=== PATIENT | female | born 1995 | race Caucasian/White ===

== ENCOUNTER 2017-07-26 05:50 | Emergency (ER) | payer BC ==
[~2017-07-26] VITALS: Ht 162.6 cm; Wt 82.0 kg
[~2017-07-26 05:50] MED LIST: ADVIN25050 INH; ALBU1AER9 INH; CETI10TA84 PO; IPRASOL4 INH; IUD'IUD; MISCCAP80 PO; MONT1TAB3 PO; SERT-234 PO
[2017-07-26 05:56] VITALS: TEMP 38.1; Ht 162.6 cm; Wt 82.0 kg
[2017-07-26] MEDS ORDERED: ALBUT/IPRATROP 3MG/0.5MG NEB 3 ML VIAL INH STA (06:01)
[2017-07-26] MEDS ORDERED: ACETAMINOPHEN 500 MG TAB PO STA (06:01)
[2017-07-26] MEDS ORDERED: DEXAMETHASONE **PF** INJ 10 MG/ML VIAL PO ONE (06:15)
--- NOTE | 2017-07-26 06:29 | EMERGENCY ROOM VISIT NOTE ---
History First contact with patient: 05:59 Chief Complaint: FLU LIKE SX Stated Complaint: COUGH,CHEST PAIN,WHEEZING,FEVER,ACHES History of Present Illness The patient is a 22 year old female who presents to the Emergency Room with complaints of fever, chills, cough, congestion, myalgias and arthralgias for the past 2 days. Patient has asthma. She's been around sick people. No flu shot. Patient denies chest pain, abdominal pain, sore throat, neck stiffness, vomiting, earache. She is tolerate by mouth fluids and food. Review of Systems See HPI for pertinent positives & negatives. A total of 10 systems reviewed and were otherwise negative. Past Medical/Surgical History Medical Problems: (1) Asthma (2) Croup (3) Panic attack (4) Pneumonia Surgical Problems: (1) [place] teeth removed Family History Diabetes mellitus FH: heart disease Hypertension Social History Smoking Status: Current Some Day Smoker Alcohol Use: none Drug Use: none Marital Status: single Housing Status: lives with roommate Occupation Status: employed Current/Historical Medications Scheduled Cetirizine (Zyrtec), 10 MG PO DAILY Montelukast Sodium (Singulair), 10 MG PO DAILY Prednisone (Prednisone), 50 MG PO DAILY Probiotic Product (Probiotic), 1 CAP PO DAILY Sertraline (Zoloft), 150 MG PO DAILY Scheduled PRN Albuterol (Proair Hfa), 2 PUFFS INH Q4H PRN for Rescue Fluticasone Prop/Salmeterol (Advair Diskus 250-50 Mcg/Dose), 1 PUFF INH DAILY PRN for Ipratropium-Albuterol (Duoneb), 1 TREATMENT INH Q4H PRN for Asthma Miscellaneous Medications Iud's (Paragard Intrauterine [employer]) Physical Exam Vital Signs Date Time Temp Pulse Resp B/P (MAP) Pulse Ox O2 Delivery O2 Flow Rate FiO2 07/26/17 05:56 38.1 122 20 121/77 99 Room Air Physical Exam VITALS: Vitals are noted on the nurse's note and reviewed by myself. Vital signs febrile GENERAL: Pleasant female, in no acute distress, nondiaphoretic, well-developed well-nourished. SKIN: The skin was without rashes, erythema, edema, or bruising. There is no tenting of the skin. Capillary reflex less than 2 seconds. HEAD: Normocephalic atraumatic. EARS: External auditory canals clear, tympanic membranes pearly hernandez without erythema or effusion bilaterally. EYES: Pupils equal round and reactive to light and accommodation. Conjunctivae without injection, sclerae without icterus. Extraocular movements intact. NOSE: Patent, turbinates without inflammation or discharge. No sinus tenderness. MOUTH: Mucous membranes mildly dry Pharynx without erythema or exudate. Uvula midline. Airway patent. Tongue does not deviate. NECK: Supple without nuchal rigidity. No lymphadenopathy. No thyromegaly. Cervical spine is nontender. No JVD. No meningeal signs HEART: Regular rate and rhythm without murmurs gallops or rubs. LUNGS: Mild diffuse end expiratory wheezes, without rales or rhonchi. No dullness to percussion. No retractions or accessory muscle use. ABDOMEN: Positive bowel sounds x 4. Normal tympanic percussion. Soft, nontender, without masses or organomegaly. Singleton sign negative. No guarding or rebound tenderness. MUSCULOSKELETAL: No muscle atrophy, erythema, or edema noted. NEURO: Patient was alert and oriented to person place and time. Normal sensation to light and sharp touch. No focal neurological deficits. Medical Decision & Procedures Laboratory Results Test 07/26/17 06:10 Medications Administered Medications (Trade) Dose Ordered Sig/Vivien Route Start Time Stop Time Status Last Admin Dose Admin Albuterol/ Ipratropium (Duoneb) 3 ml NOW STAT INH 07/26/17 06:01 07/26/17 06:04 DC 07/26/17 06:08 3 ML Acetaminophen (Tylenol Tab) 1,000 mg NOW STAT PO 07/26/17 06:01 07/26/17 06:04 DC 07/26/17 06:08 1,000 MG Dexamethasone Sodium Phosphate (Dexamethasone Inj Pf) 10 mg NOW ONCE PO 07/26/17 06:15 07/26/17 06:16 DC 07/26/17 06:08 10 MG ED Course Prior records/ancillary studies reviewed. Triage Nursing notes reviewed. The patient's history was concerning for fever. Differential diagnosis: Etiologies such as viral syndrome, otitis, pharyngitis, pneumonia, influenza, meningitis, asthmatic bronchitis, sepsis, bacteremia, as well as others were entertained. Physical examination: Patient is alert, interactive and nontoxic-appearing ER treatment provided: Nebulizer, Tylenol, prednisone On reassessment the patient felt better. Diagnostics interpreted by me: Imaging studies: CXR with no acute consolidation, pneumothorax or free air per my interpretation This appears to be consistent with asthmatic bronchitis. Patient had no pneumonia on x-ray. No signs of meningitis. No ear infection. She is advised to take medications as directed, rest, stay well-hydrated and to follow-up family care in a few days or here in the ER sooner for high fevers, lethargy, chest pain, worsening signs or symptoms or as needed. By the evaluation outlined above emergent etiologies such as otitis, pharyngitis, pneumonia, meningitis, urinary tract infection, sepsis, bacteremia, as well as others were deemed relatively unlikely. Patient then stated she needed a refill of her Advair as she was out and this is given to her. The pt informed about the findings as listed above. All questions were answered and pleased with the treatment. Return instructions were outlined and the patient was discharged in stable condition. Outpatient prescription management: Prednisone Referral: The patient was referred back to their primary care physician for follow-up in 2 to 3 days for a recheck of the current condition. Medical Decision as above Medication Reconcilliation Current Medication List: was personally reviewed by me Blood Pressure Screening Patient's blood pressure: Normal blood pressure Impression Primary Impression: Asthmatic bronchitis Departure Information Dispostion Home / Self-Care Condition GOOD Prescriptions Prednisone (Prednisone) 50 Mg Tab 50 MG PO DAILY for 4 Days, #4 TAB Prov: Vale Mays ., KENDAL 07/26/17 Referrals Oliver Dempsey MD (PCP) Patient Instructions My [facility] Additional Instructions Albuterol Inhaler: Take 2 puffs four times daily for five days, then as needed. Prednisone 50mg: Once daily until the prescription is finished. It is best to take this earlier in the day as some patients note occasional difficulty falling asleep when taken in the late evening. Acetaminophen(Tylenol) may be used for fever or pain. Use 1000mg every six hours as needed. Avoid using more than 3000mg in a 24 hour period. (AND/OR) Ibuprofen(Motrin, Advil) may be used for fever or pain. Use 600mg every six hours as needed. Take with food. Avoid using more than 2400mg in a 24 hour period. Do not use 2400mg per day for more than three consecutive days without physician direction. Prolonged inappropriate use can lead to stomach upset or ulcers. Afrin nasal spray: 2-3 sprays to each nostril twice daily as needed for congestion. Do not use for more than 3-4 days because it can lead to worsening rebound congestion. Pseudoephedrine(Sudaphed): 30-60mg every 6 hours as needed for nasal congestion. Do not take this with other stimulant products or supplements. Rest and drink plenty of fluids. Controlling your fever with Tylenol and Ibuprofen as above will make you feel better. Wash your hands after nose blowing, sneezing, or coughing. Most germs are spread through contact, therefore improper hygiene may result in your close contacts and loved ones becoming ill just like you. Continue current medications. Return to the ER for severe headache, neck stiffness, chest pain, difficulty breathing, fevers, vomiting, worsening of your condition, or as needed. Follow up with your primary physician this week for a recheck of your current condition. Problem Qualifiers Primary Impression: Asthmatic bronchitis Asthma severity: mild Asthma persistence: intermittent Asthma complication type: with acute exacerbation Qualified Codes: J45.21 - Mild intermittent asthma with (acute) exacerbation
[2017-07-26] MEDS ORDERED: PRED50TA PO (06:30)
[2017-07-26] MEDS ORDERED: FLUTICASONE/SALMETEROL 250/50 (ADVAIR) 14 PUFF/1 INHALER INH STA (06:31)
[2017-07-26 06:43] VITALS: BP 118/71; PULSE 101; O2SAT 98
--- NOTE | 2017-07-26 06:55 | DIAGNOSTIC IMAGING REPORT ---
CHEST 2 VIEWS ROUTINE CLINICAL HISTORY: Cough. Fever. COMPARISON STUDY: Chest radiograph May 05, 2016. FINDINGS: Lung volumes are normal. No pneumothorax or pleural effusion is present. Pulmonary vascularity is normal. There is no consolidation to suggest pneumonia. Cardiomediastinal silhouette is normal. Appearance of the chest is unchanged. IMPRESSION: No acute cardiopulmonary findings. Electronically signed by: Tutu Nielsen M.D. 07/26/2017 6:54 AM Dictated Date/Time: 07/26/2017 6:53 AM
== END 2017-07-26 06:44 | disposition home or self-care (01) ==
LOC: C.EDB 05:51
DX: J45.21 Mild intermittent asthma with (acute) exacerbation (principal); R05 Cough; R50.9 Fever, unspecified

== ENCOUNTER → 2017-11-04 | Outpatient (CLI) | payer BC ==
[~2017-11-04] MED LIST changes: -ADVIN25050 INH; -ALBU1AER9 INH; -IPRASOL4 INH; -MISCCAP80 PO
[2017-11-04 16:37] LABS: BASO % 0.3 %; BASO ABS # 0.03 K/uL (0-0.2); EOS % 2.1 %; EOS ABS # 0.25 K/uL (0-0.5); HEMATOCRIT 39.9 % (37-47); HEMOGLOBIN 13.7 g/dL (12.0-16.0); LYMPH ABS # 2.39 K/uL (1.2-3.4); MEAN CELL VOLUME 86.9 fL (80-100); MEAN CORPUSCULAR HEMOGLOBIN 29.8 pg (25-34); MEAN CORPUSCULAR HGB CONC 34.3 g/dl (32-36); MEAN PLATELET VOLUME 8.5 fL (7.4-10.4); MONO ABS # 0.84 K/uL (0.11-0.59); NEUT % 69.8 %; NEUT ABS # 8.36 K/uL (1.4-6.5); PLATELET COUNT 397 K/uL (130-400); RED CELL DISTRIBUTION WIDTH CV 12.5 % (11.5-14.5); RED CELL DISTRIBUTION WIDTH SD 40.2 fL (36.4-46.3); WHITE BLOOD COUNT 11.97 K/uL (4.8-10.8)
[2017-11-04 17:25] LABS: T3 FREE 2.91 pg/ml (2.30-4.20)
== END | disposition home or self-care (01) ==
LOC: C.LAB 15:39
PROVIDERS: ATTEND Psychiatry & Neurology Psychiatry
DX: F31.81 Bipolar II disorder (principal)

== ENCOUNTER → 2017-11-11 | Outpatient (CLI) | payer BC ==
[2017-11-11 17:46] LABS: BASO % 0.2 %; BASO ABS # 0.03 K/uL (0-0.2); EOS % 4.1 %; EOS ABS # 0.51 K/uL (0-0.5); HEMATOCRIT 40.9 % (37-47); HEMOGLOBIN 13.7 g/dL (12.0-16.0); IG# 0.06 K/uL (0.00-0.02); LYMPH % 21.7 %; LYMPH ABS # 2.69 K/uL (1.2-3.4); MEAN CELL VOLUME 88.3 fL (80-100); MEAN CORPUSCULAR HEMOGLOBIN 29.6 pg (25-34); MEAN CORPUSCULAR HGB CONC 33.5 g/dl (32-36); MONO % 6.9 %; MONO ABS # 0.86 K/uL (0.11-0.59); NEUT % 66.6 %; NEUT ABS # 8.24 K/uL (1.4-6.5); PLATELET COUNT 388 K/uL (130-400); RED CELL DISTRIBUTION WIDTH CV 12.5 % (11.5-14.5); RED CELL DISTRIBUTION WIDTH SD 40.1 fL (36.4-46.3); WHITE BLOOD COUNT 12.39 K/uL (4.8-10.8)
[2017-11-11 18:19] LABS: ALKALINE PHOSPHATASE 63 U/L (45-117); ALT/SGPT 20 U/L (12-78); AST/SGOT 12 U/L (15-37); TOTAL PROTEIN 7.7 gm/dl (6.4-8.2)
== END | disposition home or self-care (01) ==
LOC: C.LAB 16:47
PROVIDERS: ATTEND Family Medicine
DX: R23.2 Flushing (principal); F31.30 Bipolar disorder, current episode depressed, mild or moderate severity, unspecified

== ENCOUNTER → 2018-03-03 | Outpatient (CLI) | payer BC ==
[~2018-03-03] MED LIST changes: +ABL/5 PO; +EPP3/2 IM; -IUD'IUD; +LEVO1IUD2 IU; +NAPR-22 PO; +PRVHFAIN INH; -SERT-234 PO; +SERT50TA PO; +ZIPR60CA PO
--- NOTE | 2018-03-03 08:51 | DIAGNOSTIC IMAGING REPORT ---
BRAIN WITHOUT CONTRAST HISTORY: Headache. Mental status change. ATYPICAL MIGRAINE TECHNIQUE: Multiplanar multisequence MRI of the brain was performed without the use of contrast. COMPARISON STUDY: None. FINDINGS: There are no areas of restricted diffusion to suggest acute infarction. The midline structures are intact. The paranasal sinuses are clear. The mastoid air cells are clear. The ventricles and sulci are within normal limits for age. There is no mass, hematoma, midline shift. The major vascular flow-voids at the skull base are well maintained. IMPRESSION: No acute intracranial abnormality. The above report was generated using voice recognition software. It may contain grammatical, syntax or spelling errors. Electronically signed by: Saji Mclaughlin M.D. 03/03/2018 8:50 AM Dictated Date/Time: 03/03/2018 8:47 AM
== END | disposition home or self-care (01) ==
LOC: C.MRI 07:50
PROVIDERS: ATTEND Family Medicine
DX: G43.009 Migraine without aura, not intractable, without status migrainosus (principal)

== ENCOUNTER 2025-06-11 16:42 | Observation (INO) ==
--- NOTE | 2025-06-11 17:54 | XRay Report ---
Chest radiograph, one view History: Shortness of breath Comparison: None Findings: Single AP view of the chest performed. No focal consolidation or pleural effusion. No pneumothorax. The cardiomediastinal silhouette is within normal limits. Normal pulmonary vascularity. No evidence for lymphadenopathy. No visualized bony or soft tissue abnormality. Impression: Normal chest radiograph Electronically signed by Oliver Dietrich 06-11-2025 5:54 PM
[2025-06-11 18:05] LABS: Hematocrit (blood only) 38.6 % (37.0-47.0); Hemoglobin 13.3 g/dl (12.0-16.0); Immature Granulocytes # (auto) 0.05 K/uL (0.01-0.20); Immature Granulocytes % (auto) 0.4 %; Mean Corpuscular Hemoglobin 29.5 pg (25.0-34.0); Mean Corpuscular Volume 85.6 fL (80.0-100.0); Platelet Count 414 K/uL (130-400); RDW Standard Deviation 37.9 fL (36.4-46.3); Red Blood Count 4.51 M/uL (4.20-5.40); White Blood Count 11.86 K/ul (4.8-10.8)
[2025-06-11 18:22] LABS: Base Excess VBG -0.5 mEq/L; HCO3 VBG 24 mmol/L; Oxygen Saturation VBG 97.4 %; PCO2 VBG 39 mmHg (38-50); PO2 VBG 81 mmHg; pH VBG 7.40 (7.36-7.41)
[2025-06-11 18:23] LABS: Alanine Aminotransferase 9 U/L (7-52); Albumin Globulin Ratio 1.4 (0.9-2); Albumin Level 4.6 gm/dl (3.4-5.0); Alkaline Phosphatase 57 U/L (34-104); Anion Gap 11 (3-11); Bilirubin,Total 0.9 mg/dl (0.2-1.0); Blood Urea Nitrogen 5 mg/dl (6-23); Calcium 10.2 mg/dl (8.6-10.3); Carbon Dioxide 23 mmol/L (21-32); Chloride 106 mmol/L (98-107); Globulin 3.4 gm/dl (2.5-4.0); Glucose 115 mg/dl (70-99(Fasting)); Lipase 8 U/L (11-82); Magnesium 2.0 mg/dl (1.7-2.4); Potassium 3.6 mmol/L (3.5-5.1); Sodium 140 mmol/L (136-145); Total Protein 8.0 gm/dl (6.0-8.3)
[2025-06-11] MEDS: OPTIRAY 320 125ml IV ONE (18:36)
[2025-06-11 18:38] LABS: Appearance Urine Clear (Clear); Bacteria Urine Automated 2+ (None Seen); Cast Urine Automated 0-2 /lpf (0-2); Glucose Urine UA Negative (Negative); RBC Urine Automated 0-2 /hpf (0-2)
--- NOTE | 2025-06-11 18:58 | CT Scan Report ---
CT HEAD: HISTORY: Headaches. Nausea and vomiting. TECHNIQUE: Noncontrast CT examination of the head is performed. Coronal and sagittal reformats were created. COMPARISON: Brain CT one day previous FINDINGS: There is no evidence of intracranial hemorrhage, focal mass effect or midline shift. No fluid collection is identified. The ventricular system is midline and symmetric. No evidence of acute major vascular territory infarction. Stent over the right transverse sinus is again seen. No calvarial fracture is identified. The mastoids are well aerated. Small fluid in the sphenoid sinuses. IMPRESSION: No acute intracranial process identified. Electronically signed by Gonzales Matthews 06-11-2025 6:58 PM
[2025-06-11] MEDS: diphenhydrAMINE 50 MG/ML VIAL IV STA (19:04)
[2025-06-11] MEDS: SODIUM CHLORIDE 0.9% 1,000 ML IV ONE (19:04)
[2025-06-11 19:05] LABS: Chlamydia pneumoniae PCR Not Detected (NotDetected); Coronavirus 229E PCR Not Detected (NotDetected); Coronavirus CoV-2 (COVID19)PCR Not Detected (NotDetected); Coronavirus HKU1 PCR Not Detected (NotDetected); Coronavirus NL63 PCR Not Detected (NotDetected); Coronavirus OC43PCR Not Detected (NotDetected); Human Metapneumovirus PCR Not Detected (NotDetected); Parainfluenza Virus 1 PCR Not Detected (NotDetected); Parainfluenza Virus 2 PCR Not Detected (NotDetected); Parainfluenza Virus 3 PCR Not Detected (NotDetected); Parainfluenza Virus 4 PCR Not Detected (NotDetected); Respiratory Syncytial VirusPCR Not Detected (NotDetected); Rhinovirus/Enterovirus PCR Not Detected (NotDetected)
[2025-06-11] MEDS: METOCLOPRAMIDE HCL INJ 5 MG/ML 2 ML VIAL IV ONE (19:06)
[2025-06-11] MEDS: ONDANSETRON INJ 2 MG/ML 2 ML VIAL IV STA (19:14)
[2025-06-11] MEDS: OPTIRAY 320 100ml IV ONE (19:35)
[2025-06-11 19:46] LABS: Cdiff Toxin B Gene (2yr or >) Negative Cdiff Gene (Neg)
--- NOTE | 2025-06-11 19:51 | CT Scan Report ---
Technique: Axial computed tomography images were obtained of the abdomen and pelvis after the administration of intravenous contrast. Comparison is made to the prior CT dated 09/23/2024. Findings: The liver is overall of normal size, attenuation, and contour with no sign of cirrhosis or significant fatty infiltration. No liver mass lesion is seen. The portal vein is patent. The gallbladder appears unremarkable. No bile duct dilatation is noted. The spleen is of normal size. No focal splenic lesion is evident. The pancreas appears normal with no sign of acute or chronic pancreatitis and no mass lesion noted. The pancreatic duct is of normal caliber. The adrenal glands appear unremarkable. No definite renal or proximal ureteral calculi are seen on this contrast-enhanced study. There is no hydronephrosis or perinephric stranding. No renal mass lesion is identified. There is a 9 mm right renal cyst and there is a 3 mm left renal cyst The aorta is of normal caliber. No abdominal adenopathy is seen. The stomach appears normal. There is no sign of small bowel obstruction. The colon appears unremarkable. The appendix appears normal also. No free intraperitoneal fluid or air is identified. No distal ureteral or bladder calculi are seen. No bladder mass lesion is evident. The iliac arteries are of normal caliber. No pelvic adenopathy is noted. There is a 1.8 cm right ovarian cyst and there is a 2.7 cm left ovarian cyst The lungs bases appear clear. No fracture is identified. No focal osseous lesion is seen Impression: 1. Small bilateral renal cysts 2. Bilateral ovarian cysts, likely benign. A pelvic ultrasound could be considered for further evaluation Electronically signed by Arturo Cortes 06-11-2025 7:51 PM
[2025-06-11 20:16] LABS: Adenovirus F 40/41 PCR Not Detected (NotDetected); Campylobacter PCR Not Detected (NotDetected); Enteroaggregative E.coli(EAEC) Not Detected (NotDetected); Shiga-like Toxin E.coli (STEC) Not Detected (NotDetected); Vibrio species PCR Not Detected (NotDetected)
--- NOTE | 2025-06-11 22:25 | History & Physical Report ---
Date of Service June 11, 2025 Assessment & Plan (1) Nausea vomiting and diarrhea: (2) Dyspnea: (3) Anxiety: Plan 21-year-old female with history of pseudotumor cerebri, bipolar depression presenting with multiple complaints as above. Patient is afebrile, hemodynamically stable in the ER. Labs and images largely remarkable as above. #Nausea/vomiting/diarrheaoverall improving Observation to medical telemetry IV fluids with LR at 20 mL/h x 2 L ordered Repeat chemistry in the morning Pepcid 20 mg IV twice daily Protonix 40 mg IV daily Zofran and Compazine as needed for nausea #Possible UTI -Check urine culture Ceftriaxone #Pseudotumor cerebri status post recent stent placement Continue Plavix and aspirin #Migrainepatient takes Ubrelvy as well as atogepant at home. Non-formulary here -Patient may bring medications from home to be taken here as needed -Tylenol, Magnesium, steroids, Reglan could be considered if patient develops migraine #Dyspneapatient describes dyspnea, palpitations, dizziness with positional changes. She is currently being worked up for POTS Will check 2D echo Check orthostatic vital signs Hydration with LR as above #HypothyroidismTSH = 2.25 on 05/2025. Continue Synthroid 25 mcg p.o. daily # Anxietyfeel that many of patient's symptoms this evening could be secondary to anxiety. Question possible vocal cord dysfunction as explanation for he throat fullness, hoarsness and SOB? Continue hydroxyzine. Will increase to 50 mg p.o. 3 times daily as needed for anxiety Continue gabapentin 100 mg p.o. every afternoon History of Present Illness Chief Complaint: chest pain, palpitations, throat tightness, dizziness, perioral paresthesias, shortness of breath Primary Care Provider: Oliver Dempsey MD Naomi Quiñones is a 30 yo female with history of pseudotumor cerebri status post [employer] stent placed 04/14/2025 at [facility], bipolar depression, migraine, asthma presenting with multiple complaints. Patient reports that she developed chest pain sometime in February after having her brain surgery performed. The pain at first was typically sharp in nature, an terior chest, occurs with lying down and not sleeping. However, of late she has been experiencing the pain while sitting up as well. She has also been having shortness of breath. She reports feeling a fullness in her throat with the feeling of a lump and difficulty swallowing as well as some tightness. This has been ongoing for the last few months. Also with complaint of vertigo which occurs with deep breathing as well as tingling of her lips and around her mouth as well as her arms. She also occasionally gets sharp pain in her head, sharp pains in her chest, intermittent palpitations as well as headache. Additionally, patient has been complaining of nausea with several episodes of nonbloody/nonbilious emesis as well as multiple episodes of watery diarrhea. She thinks this may be associated with the sodium bicarbonate which she has been taking. She recently stopped this medication and her GI symptoms have been improving over the last day. She reports some increased urinary frequency and increased urine output as well. No dysuria, flank pain, fever. Has been experiencing some chills. There are patient is afebrile, hemodynamically stable and nontoxic in appearance Allergies Allergy/AdvReac Type Severity Reaction Status Date / Time Latex, Natural Rubber Allergy Severe Hives Verified 06/11/25 21:02 peanut Allergy Intermediate HIVES Verified 06/11/25 21:02 tree nut Allergy Intermediate HIVES Verified 06/11/25 21:02 latex Allergy Mild rash Verified 06/11/25 21:02 calcium carbonate [From DHEA] Allergy Unknown Unknown Verified 06/11/25 21:02 calcium phosphate,dibasic Allergy Unknown Unknown Verified 06/11/25 21:02 [From DHEA] prasterone (DHEA) [From DHEA] Allergy Unknown Unknown Verified 06/11/25 21:02 fluoxetine [From Prozac] AdvReac Unknown Unknown Verified 06/11/25 21:02 lactose intolerance AdvReac Intermediate Abdominal Uncoded 06/11/25 21:02 Pain Home Medications Medication Instructions Recorded Confirmed Type albuterol sulfate 90 mcg/actuation 2 puff inhalation Q6H PRN sob 07/21/24 06/11/25 History aerosol inhaler epinephrine 0.3 mg/0.3 mL 0.3 mg IM ONCE PRN Allergic 07/21/24 06/11/25 History injection, auto-injector Reaction ubrogepant 100 mg tablet (Ubrelvy) 100 mg PO UD PRN migraine 12/24/24 06/11/25 History atogepant 60 mg tablet (Qulipta) 60 mg PO DAILY 30 days #30 tabs 01/11/25 06/11/25 Rx ergocalciferol (vitamin D2) 1,250 1,250 mcg PO WK 02/23/25 06/11/25 History mcg (50,000 unit) capsule aspirin 81 mg tablet 81 mg PO DAILY 05/03/25 06/11/25 History clopidogrel 75 mg tablet (Plavix) 75 mg PO DAILY 05/03/25 06/11/25 History hydroxyzine HCl 50 mg tablet 50 mg PO HS PRN Anxiety 05/03/25 06/11/25 History ondansetron HCl 4 mg tablet 4 mg PO Q6H PRN NAUSEA/VOMITING 05/03/25 06/11/25 History levothyroxine 75 mcg tablet 75 mcg PO DAILY #90 tabs 05/04/25 06/11/25 Rx amoxicillin 875 mg-potassium 1 tab PO BID 06/03/25 06/11/25 History clavulanate 125 mg tablet gabapentin 300 mg capsule 900 mg PO QPM 06/03/25 06/11/25 History ketotifen fumarate 0.025 % (0.035 1 drp OPB BID 06/11/25 06/11/25 History %) eye drops neomycin 3.5 mg/g-polymyxin B 1 applic OPB DIRECTED 06/11/25 06/11/25 History 10,000 unit/g-dexameth 0.1 % eye oint Past Med/Surg History Problem List Nausea vomiting and diarrhea (Acute) Dyspnea (Acute) Dyspnea (Acute) White matter abnormality on MRI of brain Seizure-like activity Syncope Arthralgia Myalgia Migraine Asthma Anxiety Bipolar depression Chronic low back pain Medical History Vitamin D deficiency Pseudotumor cerebri Surgical History [place] teeth removed Family History Mother Chronic headaches Breast cancer Father Hypertension Brother No problems noted. Aunt Colorectal cancer Denies family history of Ovarian cancer Prostate cancer Myocardial infarction Social History Smoking Status: Former smoker Tobacco Type: Cigarettes Second Hand Exposure: No; Do You Dip or Chew Tobacco: No; Tobacco Cessation Education Requested by Patient: No Hx Alcohol Use: No Hx Substance Use: Yes Prescribed Medications: Former Misuse of Rx Meds Last Used Substance Other:: 3 years Preferred Language: Marshallese Hearing Ability: Normal Boxing Trainer Required: No Beliefs That Will Affect Care: None Current Living Situation: Significant Other current occupational status: employed Other Information That Helps Us Care for You: No Feels Safe at Home: Yes Safety Concerns: Feels Safe At This Time Assistive Devices: None Review of Systems Review of Systems: All systems reviewed & are unremarkable except as noted in HPI & below Physical Exam Physical Exam: General: patient resting comfortably, NAD, non-toxic in appearance, AA&O x 4 Skin: warm, dry, intact, no rashes or lesions HEENT: NC/AT, PERRL, EOMI, anicteric sclera, conjunctiva without injection, external ear normal to inspection and nontender, nares patent, moist mucus membranes, dentition intact, no oropharyngeal lesions, neck supple, trachea midline, no LAD, no thyromegaly, no JVD Heart: +S1/S2, regular, no m/r/g Lungs: equal air entry bilaterally, no rales/rhonchi/wheezes Abd: +BS, soft, NT/ND, no masses/organomegaly/ascites Ext: warm, 2+ pulses in UE/LE bilaterally, no clubbing/cyanosis or edema Neuro: nonfocal, patient AA&O x 4, speech intact, no facial droop, moving all extremities on command with equal strength 5/5 Results & Data Results & Data Vital Signs (Past 12 Hours) Vital Signs Temp Pulse Pulse Resp BP BP Pulse Ox 06/11/25 22:00 91 H 23 06/11/25 21:51 94 H 26 H 06/11/25 21:42 81 14 06/11/25 21:33 97 H 20 06/11/25 21:27 96 H 06/11/25 21:21 105 H 19 100 06/11/25 21:12 96 H 20 99 06/11/25 21:00 87 15 100 06/11/25 21:00 139/100 06/11/25 21:00 139/100 06/11/25 21:00 139/100 06/11/25 21:00 139/100 06/11/25 21:00 139/100 06/11/25 20:42 82 16 128/96 100 06/11/25 20:00 120/91 06/11/25 19:51 79 19 100 06/11/25 19:42 81 20 99 06/11/25 19:42 129/94 06/11/25 19:42 129/94 06/11/25 19:42 129/94 06/11/25 19:42 129/94 06/11/25 19:42 129/94 06/11/25 19:39 100 06/11/25 19:21 81 16 99 06/11/25 18:57 79 16 123/94 97 06/11/25 18:26 77 20 123/94 98 06/11/25 18:25 123/94 06/11/25 18:25 123/94 06/11/25 18:25 123/94 06/11/25 18:00 82 19 97 06/11/25 17:51 82 20 97 06/11/25 17:42 80 22 98 06/11/25 17:34 89 06/11/25 17:33 89 20 100 06/11/25 17:13 100 06/11/25 17:01 36.6 C 94 H 18 131/90 100 O2 Del Method 06/11/25 22:00 06/11/25 21:51 06/11/25 21:42 06/11/25 21:33 06/11/25 21:27 06/11/25 21:21 06/11/25 21:12 06/11/25 21:00 06/11/25 21:00 06/11/25 21:00 06/11/25 21:00 06/11/25 21:00 06/11/25 21:00 06/11/25 20:42 06/11/25 20:00 06/11/25 19:51 06/11/25 19:42 06/11/25 19:42 06/11/25 19:42 06/11/25 19:42 06/11/25 19:42 06/11/25 19:42 06/11/25 19:39 06/11/25 19:21 06/11/25 18:57 06/11/25 18:26 Room Air 06/11/25 18:25 06/11/25 18:25 06/11/25 18:25 06/11/25 18:00 06/11/25 17:51 06/11/25 17:42 06/11/25 17:34 06/11/25 17:33 06/11/25 17:13 Room Air 06/11/25 17:01 Room Air Laboratory Results Laboratory Results WBC 11.86 K/ul (4.8-10.8) H 06/11/25 17:45 RBC 4.51 M/uL (4.20-5.40) 06/11/25 17:45 Hgb 13.3 g/dl (12.0-16.0) 06/11/25 17:45 Hct 38.6 % (37.0-47.0) 06/11/25 17:45 MCV 85.6 fL (80.0-100.0) 06/11/25 17:45 MCH 29.5 pg (25.0-34.0) 06/11/25 17:45 MCHC 34.5 g/dL (32.0-36.0) 06/11/25 17:45 RDW Std Deviation 37.9 fL (36.4-46.3) 06/11/25 17:45 RDW Coeff of Aniya 12.1 % (11.5-14.5) 06/11/25 17:45 Plt Count 414 K/uL (130-400) H 06/11/25 17:45 MPV 8.9 fL (9.4-12.4) L 06/11/25 17:45 Immature Gran % (Auto) 0.4 % 06/11/25 17:45 Neut % (Auto) 64.8 % 06/11/25 17:45 Lymph % (Auto) 21.0 % 06/11/25 17:45 Brewster % (Auto) 10.1 % 06/11/25 17:45 Eos % (Auto) 3.2 % 06/11/25 17:45 Baso % (Auto) 0.5 % 06/11/25 17:45 Neut # (Auto) 7.68 K/uL (1.40-6.50) H 06/11/25 17:45 Lymph # (Auto) 2.49 K/uL (1.20-3.40) 06/11/25 17:45 Brewster # (Auto) 1.20 K/uL (0.11-0.59) H 06/11/25 17:45 Eos # (Auto) 0.38 K/uL (0.00-0.50) 06/11/25 17:45 Baso # (Auto) 0.06 K/uL (0.00-0.20) 06/11/25 17:45 Immature Gran # (Auto) 0.05 K/uL (0.01-0.20) 06/11/25 17:45 PT Cancelled 06/11/25 17:45 INR Cancelled 06/11/25 17:45 APTT Cancelled 06/11/25 17:45 PTT Ratio Cancelled 06/11/25 17:45 VBG pH 7.40 (7.36-7.41) 06/11/25 Unknown VBG pCO2 39 mmHg (38-50) 06/11/25 Unknown VBG pO2 81 mmHg 06/11/25 Unknown VBG HCO3 24 mmol/L 06/11/25 Unknown VBG O2 Saturation 97.4 % 06/11/25 Unknown VBG Base Excess -0.5 mEq/L 06/11/25 Unknown Sodium 140 mmol/L (136-145) 06/11/25 17:45 Potassium 3.6 mmol/L (3.5-5.1) 06/11/25 17:45 Chloride 106 mmol/L (98-107) 06/11/25 17:45 Carbon Dioxide 23 mmol/L (21-32) 06/11/25 17:45 Anion Gap 11 (3-11) 06/11/25 17:45 BUN 5 mg/dl (6-23) L 06/11/25 17:45 Creatinine 0.68 mg/dl (0.6-1.2) 06/11/25 17:45 Est Cr Clr Drug Dosing Not Reportable 06/11/25 17:45 eGFR 120.83 06/11/25 17:45 BUN/Creatinine Ratio 7.4 (10-20) L 06/11/25 17:45 Glucose 115 mg/dl (70-99(Fasting)) H 06/11/25 17:45 Calcium 10.2 mg/dl (8.6-10.3) 06/11/25 17:45 Magnesium 2.0 mg/dl (1.7-2.4) 06/11/25 17:45 Total Bilirubin 0.9 mg/dl (0.2-1.0) 06/11/25 17:45 AST 11 U/L (13-39) L 06/11/25 17:45 ALT 9 U/L (7-52) 06/11/25 17:45 Alkaline Phosphatase 57 U/L (34-104) 06/11/25 17:45 Troponin I High Sens < 2.3 pg/ml (0-14) 06/11/25 17:45 Total Protein 8.0 gm/dl (6.0-8.3) 06/11/25 17:45 Albumin 4.6 gm/dl (3.4-5.0) 06/11/25 17:45 Globulin 3.4 gm/dl (2.5-4.0) 06/11/25 17:45 Albumin/Globulin Ratio 1.4 (0.9-2) 06/11/25 17:45 Lipase 8 U/L (11-82) L 06/11/25 17:45 Urine Color Dark Yellow 06/11/25 18:16 Urine Appearance Clear (Clear) 06/11/25 18:16 Urine pH 8.0 (4.5-7.5) H 06/11/25 18:16 Ur Specific Gary 1.015 (1.000-1.030) 06/11/25 18:16 Urine Protein Negative (Negative) 06/11/25 18:16 Urine Glucose (UA) Negative (Negative) 06/11/25 18:16 Urine Ketones Negative (Negative) 06/11/25 18:16 Urine Blood Negative (Negative) 06/11/25 18:16 Urine Nitrite Negative (Negative) 06/11/25 18:16 Urine Bilirubin Negative (Negative) 06/11/25 18:16 Urine Urobilinogen Negative (Negative) 06/11/25 18:16 Ur Leukocyte Esterase Trace (Negative) H 06/11/25 18:16 Urine WBC (Auto) 6-10 /hpf (0-5) H 06/11/25 18:16 Urine RBC (Auto) 0-2 /hpf (0-2) 06/11/25 18:16 U Hyaline Cast (Auto) 0-2 /lpf (0-2) 06/11/25 18:16 U Epithel Cells (Auto) 3-5 /hpf (0-2) H 06/11/25 18:16 Urine Bacteria (Auto) 2+ (None Seen) H 06/11/25 18:16 Urine Test Negative (Negative) 06/11/25 18:16 Urine Comment 06/11/25 18:16 Stl C. cayetanensis PCR Not Detected (NotDetected) 06/11/25 18:10 Stool Rotavirus A PCR Not Detected (NotDetected) 06/11/25 18:10 Stl Adenov F 40/41 PCR Not Detected (NotDetected) 06/11/25 18:10 Stool Astrovirus (PCR) Not Detected (NotDetected) 06/11/25 18:10 Stool Campylobacter PCR Not Detected (NotDetected) 06/11/25 18:10 Stl C. diff Tox B Gene Negative Cdiff Gene (Neg) 06/11/25 18:10 Stl C. diff [id number] NEGATIVE 06/11/25 18:10 Stool Cryptosporidium PCR Not Detected (NotDetected) 06/11/25 18:10 Stl E.coli Shiga Tox PCR Not Detected (NotDetected) 06/11/25 18:10 Stl Enterotoxigenic E PCR Not Detected (NotDetected) 06/11/25 18:10 Stool EPEC (PCR) Not Detected (NotDetected) 06/11/25 18:10 Stool EAEC (PCR) Not Detected (NotDetected) 06/11/25 18:10 Stl E. histolytica PCR Not Detected (NotDetected) 06/11/25 18:10 Stool Giardia Lamblia PCR Not Detected (NotDetected) 06/11/25 18:10 Stool Salmonella PCR Not Detected (NotDetected) 06/11/25 18:10 Stool Sapovirus (PCR) Not Detected (NotDetected) 06/11/25 18:10 Stl P. shigelloides PCR Not Detected (NotDetected) 06/11/25 18:10 Stl Shigella/EIEC PCR Not Detected (NotDetected) 06/11/25 18:10 St Y.enterocolitica PCR Not Detected (NotDetected) 06/11/25 18:10 Stool Vibrio (PCR) Not Detected (NotDetected) 06/11/25 18:10 Stl Vibrio cholerae PCR Not Detected (NotDetected) 06/11/25 18:10 Stl Norovirus GI/GII PCR Not Detected (NotDetected) 06/11/25 18:10 Adenovirus (PCR) Not Detected (NotDetected) 06/11/25 17:54 B. pertussis DNA (PCR) Not Detected (NotDetected) 06/11/25 17:54 B.parapertussis DNA PCR Not Detected (NotDetected) 06/11/25 17:54 C. pneumoniae DNA (PCR) Not Detected (NotDetected) 06/11/25 17:54 Coronavirus OC43 (PCR) Not Detected (NotDetected) 06/11/25 17:54 Coronavirus HKU1 (PCR) Not Detected (NotDetected) 06/11/25 17:54 Coronavirus 229E (PCR) Not Detected (NotDetected) 06/11/25 17:54 SARS-CoV-2 (PCR) Not Detected (NotDetected) 06/11/25 17:54 Coronavirus NL63 (PCR) Not Detected (NotDetected) 06/11/25 17:54 Human Metapneumovir PCR Not Detected (NotDetected) 06/11/25 17:54 Influenza Type A (PCR) Not Detected (NotDetected) 06/11/25 17:54 Influenza Type B (PCR) Not Detected (NotDetected) 06/11/25 17:54 M. pneumoniae (PCR) Not Detected (NotDetected) 06/11/25 17:54 Parainfluenza 1 (PCR) Not Detected (NotDetected) 06/11/25 17:54 Parainfluenza 2 (PCR) Not Detected (NotDetected) 06/11/25 17:54 Parainfluenza 3 (PCR) Not Detected (NotDetected) 06/11/25 17:54 Parainfluenza 4 (PCR) Not Detected (NotDetected) 06/11/25 17:54 RSV (PCR) Not Detected (NotDetected) 06/11/25 17:54 Entero/Rhino (PCR) Not Detected (NotDetected) 06/11/25 17:54 Group A Strep (PCR) NOT DETECTED (NotDetected) 06/11/25 17:54 Impressions Chest X-Ray 06/11/25 17:12 Chest radiograph, one view History: Shortness of breath Comparison: None Findings: Single AP view of the chest performed. No focal consolidation or pleural effusion. No pneumothorax. The cardiomediastinal silhouette is within normal limits. Normal pulmonary vascularity. No evidence for lymphadenopathy. No visualized bony or soft tissue abnormality. Impression: Normal chest radiograph Electronically signed by Oliver Dietrich 06-11-2025 5:54 PM Abdomen/Pelvis CT 06/11/25 17:45 Technique: Axial computed tomography images were obtained of the abdomen and pelvis after the administration of intravenous contrast. Comparison is made to the prior CT dated 09/23/2024. Findings: The liver is overall of normal size, attenuation, and contour with no sign of cirrhosis or significant fatty infiltration. No liver mass lesion is seen. The portal vein is patent. The gallbladder appears unremarkable. No bile duct dilatation is noted. The spleen is of normal size. No focal splenic lesion is evident. The pancreas appears normal with no sign of acute or chronic pancreatitis and no mass lesion noted. The pancreatic duct is of normal caliber. The adrenal glands appear unremarkable. No definite renal or proximal ureteral calculi are seen on this contrast-enhanced study. There is no hydronephrosis or perinephric stranding. No renal mass lesion is identified. There is a 9 mm right renal cyst and there is a 3 mm left renal cyst The aorta is of normal caliber. No abdominal adenopathy is seen. The stomach appears normal. There is no sign of small bowel obstruction. The colon appears unremarkable. The appendix appears normal also. No free intraperitoneal fluid or air is identified. No distal ureteral or bladder calculi are seen. No bladder mass lesion is evident. The iliac arteries are of normal caliber. No pelvic adenopathy is noted. There is a 1.8 cm right ovarian cyst and there is a 2.7 cm left ovarian cyst The lungs bases appear clear. No fracture is identified. No focal osseous lesion is seen Impression: 1. Small bilateral renal cysts 2. Bilateral ovarian cysts, likely benign. A pelvic ultrasound could be considered for further evaluation Electronically signed by Arturo Cortes 06-11-2025 7:[address] 06/11/25 17:45 CT HEAD: HISTORY: Headaches. Nausea and vomiting. TECHNIQUE: Noncontrast CT examination of the head is performed. Coronal and sagittal reformats were created. COMPARISON: Brain CT one day previous FINDINGS: There is no evidence of intracranial hemorrhage, focal mass effect or midline shift. No fluid collection is identified. The ventricular system is midline and symmetric. No evidence of acute major vascular territory infarction. Stent over the right transverse sinus is again seen. No calvarial fracture is identified. The mastoids are well aerated. Small fluid in the sphenoid sinuses. IMPRESSION: No acute intracranial process identified. Electronically signed by Gonzales Matthews 06-11-2025 6:58 PM PG Care Time/CCT Total # of Minutes Spent Total Time Spent with Patient: Total time spent is greater than 50% in coordination of care (as documented) at patient's floor/unit and/or counseling patient: Coding Level of Care Code 12195 INT INP/OBS CARE 3/75MIN Diagnoses Nausea vomiting and diarrhea R11.2; R19.7 Dyspnea R06.00 Anxiety F41.9
[2025-06-11] MEDS: KETOROLAC TROMETHAMINE 15 MG/ML VIAL IV STA (22:27)
--- NOTE | 2025-06-11 23:49 | Emergency Department Note ---
History of Present Illness General Chief complaint: Shortness of Breath/Dyspnea Stated complaint: SOB, TOUBLE SWALLOWING, VOMITING, DIARRHEA Time Seen by Provider: 06/11/25 17:38 History of Present Illness Provider complaint: Illness Maximum Pain Intensity: 9 30-year-old female presents emergency room department for illness. Patient reports she is having difficulty breathing, she has throat pain, she has chest pain, she has headache, she has nausea, she is vomiting, she has diarrhea, she has myalgias. 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 Patient reports that for the last week she has been having 30 bowel movements a day despite taking Imodium. Home Medications Medication Instructions Recorded Confirmed Type albuterol sulfate 90 mcg/actuation 2 puff inhalation Q6H PRN sob 07/21/24 06/11/25 History aerosol inhaler epinephrine 0.3 mg/0.3 mL 0.3 mg IM ONCE PRN Allergic 07/21/24 06/11/25 History injection, auto-injector Reaction ubrogepant 100 mg tablet (Ubrelvy) 100 mg PO UD PRN migraine 12/24/24 06/11/25 History atogepant 60 mg tablet (Qulipta) 60 mg PO DAILY 30 days #30 tabs 01/11/25 06/11/25 Rx ergocalciferol (vitamin D2) 1,250 1,250 mcg PO WK 02/23/25 06/11/25 History mcg (50,000 unit) capsule aspirin 81 mg tablet 81 mg PO DAILY 05/03/25 06/11/25 History clopidogrel 75 mg tablet (Plavix) 75 mg PO DAILY 05/03/25 06/11/25 History hydroxyzine HCl 50 mg tablet 50 mg PO HS PRN Anxiety 05/03/25 06/11/25 History ondansetron HCl 4 mg tablet 4 mg PO Q6H PRN NAUSEA/VOMITING 05/03/25 06/11/25 History levothyroxine 75 mcg tablet 75 mcg PO DAILY #90 tabs 05/04/25 06/11/25 Rx amoxicillin 875 mg-potassium 1 tab PO BID 06/03/25 06/11/25 History clavulanate 125 mg tablet gabapentin 300 mg capsule 900 mg PO QPM 06/03/25 06/11/25 History ketotifen fumarate 0.025 % (0.035 1 drp OPB BID 06/11/25 06/11/25 History %) eye drops neomycin 3.5 mg/g-polymyxin B 1 applic OPB DIRECTED 06/11/25 06/11/25 History 10,000 unit/g-dexameth 0.1 % eye oint Allergies Allergy/AdvReac Type Severity Reaction Status Date / Time Latex, Natural Rubber Allergy Severe Hives Verified 06/11/25 21:02 peanut Allergy Intermediate HIVES Verified 06/11/25 21:02 tree nut Allergy Intermediate HIVES Verified 06/11/25 21:02 latex Allergy Mild rash Verified 06/11/25 21:02 calcium carbonate [From DHEA] Allergy Unknown Unknown Verified 06/11/25 21:02 calcium phosphate,dibasic Allergy Unknown Unknown Verified 06/11/25 21:02 [From DHEA] prasterone (DHEA) [From DHEA] Allergy Unknown Unknown Verified 06/11/25 21:02 fluoxetine [From Prozac] AdvReac Unknown Unknown Verified 06/11/25 21:02 lactose intolerance AdvReac Intermediate Abdominal Uncoded 06/11/25 21:02 Pain Past Med/Surg History Problem List (Updated 06/11/25 @ 23:49 by Yakov Thompson MD) Nausea vomiting and diarrhea (Acute) Dyspnea (Acute) Dyspnea (Acute) White matter abnormality on MRI of brain Seizure-like activity Syncope Arthralgia Myalgia Migraine Asthma Anxiety Bipolar depression Chronic low back pain Medical History Vitamin D deficiency Pseudotumor cerebri Surgical History [place] teeth removed Family History Mother Chronic headaches Breast cancer Father Hypertension Brother No problems noted. Aunt Colorectal cancer Denies family history of Ovarian cancer Prostate cancer Myocardial infarction Social History Smoking Status: Former smoker Tobacco Type: Cigarettes Hx Substance Use: Yes (Clean and sober for 3 years) Prescribed Medications: Former Misuse of Rx Meds Last Used Substance Other:: 3 years Preferred Language: Gu[place]ian Hearing Ability: Normal Current Living Situation: Significant Other current occupational status: employed Feels Safe at Home: Yes Physical Exam Vital Signs Vital Signs - 24 hr 06/11/25 17:01 06/11/25 17:13 06/11/25 17:33 Temperature 36.6 C Temperature Source Temporal Artery Scan Pulse Rate 94 H 89 Pulse Rate [Right Finger] Pulse Rate from SpO2 Sensor 91 H Pulse Rhythm [Right Finger] Pulse Strength [Right Finger] Respiratory Rate 18 20 Respiratory Effort / Characteristics Non-Labored Spontaneous Respiratory Depth Normal Respiratory Pattern Regular Blood Pressure 131/90 Blood Pressure [Left Arm] Blood Pressure Mean 103 Blood Pressure Mean [Left Arm] Blood Pressure Position [Left Arm] Pulse Oximetry 100 100 100 Oxygen Delivery Method Room Air Room Air Sepsis Recent Fever Within 48 Hours No Sepsis New/Unexplained Change in Mental Status N/A Sepsis Action Taken by Nursing No Action Required 06/11/25 17:34 06/11/25 17:42 06/11/25 17:51 Temperature Temperature Source Pulse Rate 89 80 82 Pulse Rate [Right Finger] Pulse Rate from SpO2 Sensor 80 83 Pulse Rhythm [Right Finger] Pulse Strength [Right Finger] Respiratory Rate 22 20 Respiratory Effort / Characteristics Respiratory Depth Respiratory Pattern Blood Pressure Blood Pressure [Left Arm] Blood Pressure Mean Blood Pressure Mean [Left Arm] Blood Pressure Position [Left Arm] Pulse Oximetry 98 97 Oxygen Delivery Method Sepsis Recent Fever Within 48 Hours Sepsis New/Unexplained Change in Mental Status Sepsis Action Taken by Nursing 06/11/25 18:00 06/11/25 18:25 06/11/25 18:25 Temperature Temperature Source Pulse Rate 82 Pulse Rate [Right Finger] Pulse Rate from SpO2 Sensor 83 Pulse Rhythm [Right Finger] Pulse Strength [Right Finger] Respiratory Rate 19 Respiratory Effort / Characteristics Respiratory Depth Respiratory Pattern Blood Pressure 123/94 123/94 Blood Pressure [Left Arm] Blood Pressure Mean 100 100 Blood Pressure Mean [Left Arm] Blood Pressure Position [Left Arm] Pulse Oximetry 97 Oxygen Delivery Method Sepsis Recent Fever Within 48 Hours Sepsis New/Unexplained Change in Mental Status Sepsis Action Taken by Nursing 06/11/25 18:25 06/11/25 18:26 06/11/25 18:57 Temperature Temperature Source Pulse Rate 79 Pulse Rate [Right Finger] 77 Pulse Rate from SpO2 Sensor 78 Pulse Rhythm [Right Finger] Regular Pulse Strength [Right Finger] Normal Respiratory Rate 20 16 Respiratory Effort / Characteristics Non-Labored Respiratory Depth Normal Respiratory Pattern Regular Blood Pressure 123/94 123/94 Blood Pressure [Left Arm] 123/94 Blood Pressure Mean 100 103 Blood Pressure Mean [Left Arm] 103 Blood Pressure Position [Left Arm] Lying Pulse Oximetry 98 97 Oxygen Delivery Method Room Air Sepsis Recent Fever Within 48 Hours Sepsis New/Unexplained Change in Mental Status Sepsis Action Taken by Nursing 06/11/25 19:21 06/11/25 19:39 06/11/25 19:42 Temperature Temperature Source Pulse Rate 81 Pulse Rate [Right Finger] Pulse Rate from SpO2 Sensor 80 79 Pulse Rhythm [Right Finger] Pulse Strength [Right Finger] Respiratory Rate 16 Respiratory Effort / Characteristics Respiratory Depth Respiratory Pattern Blood Pressure 129/94 Blood Pressure [Left Arm] Blood Pressure Mean 106 Blood Pressure Mean [Left Arm] Blood Pressure Position [Left Arm] Pulse Oximetry 99 100 Oxygen Delivery Method Sepsis Recent Fever Within 48 Hours Sepsis New/Unexplained Change in Mental Status Sepsis Action Taken by Nursing 06/11/25 19:42 06/11/25 19:42 06/11/25 19:42 Temperature Temperature Source Pulse Rate Pulse Rate [Right Finger] Pulse Rate from SpO2 Sensor Pulse Rhythm [Right Finger] Pulse Strength [Right Finger] Respiratory Rate Respiratory Effort / Characteristics Respiratory Depth Respiratory Pattern Blood Pressure 129/94 129/94 129/94 Blood Pressure [Left Arm] Blood Pressure Mean 106 106 106 Blood Pressure Mean [Left Arm] Blood Pressure Position [Left Arm] Pulse Oximetry Oxygen Delivery Method Sepsis Recent Fever Within 48 Hours Sepsis New/Unexplained Change in Mental Status Sepsis Action Taken by Nursing 06/11/25 19:42 06/11/25 19:42 06/11/25 19:51 Temperature Temperature Source Pulse Rate 81 79 Pulse Rate [Right Finger] Pulse Rate from SpO2 Sensor 81 79 Pulse Rhythm [Right Finger] Pulse Strength [Right Finger] Respiratory Rate 20 19 Respiratory Effort / Characteristics Respiratory Depth Respiratory Pattern Blood Pressure 129/94 Blood Pressure [Left Arm] Blood Pressure Mean 106 Blood Pressure Mean [Left Arm] Blood Pressure Position [Left Arm] Pulse Oximetry 99 100 Oxygen Delivery Method Sepsis Recent Fever Within 48 Hours Sepsis New/Unexplained Change in Mental Status Sepsis Action Taken by Nursing 06/11/25 20:00 06/11/25 20:42 06/11/25 21:00 Temperature Temperature Source Pulse Rate 82 Pulse Rate [Right Finger] Pulse Rate from SpO2 Sensor 83 Pulse Rhythm [Right Finger] Pulse Strength [Right Finger] Respiratory Rate 16 Respiratory Effort / Characteristics Respiratory Depth Respiratory Pattern Blood Pressure 120/91 128/96 139/100 Blood Pressure [Left Arm] Blood Pressure Mean 102 106 113 Blood Pressure Mean [Left Arm] Blood Pressure Position [Left Arm] Pulse Oximetry 100 Oxygen Delivery Method Sepsis Recent Fever Within 48 Hours Sepsis New/Unexplained Change in Mental Status Sepsis Action Taken by Nursing 06/11/25 21:00 06/11/25 21:00 06/11/25 21:00 Temperature Temperature Source Pulse Rate Pulse Rate [Right Finger] Pulse Rate from SpO2 Sensor Pulse Rhythm [Right Finger] Pulse Strength [Right Finger] Respiratory Rate Respiratory Effort / Characteristics Respiratory Depth Respiratory Pattern Blood Pressure 139/100 139/100 139/100 Blood Pressure [Left Arm] Blood Pressure Mean 113 113 113 Blood Pressure Mean [Left Arm] Blood Pressure Position [Left Arm] Pulse Oximetry Oxygen Delivery Method Sepsis Recent Fever Within 48 Hours Sepsis New/Unexplained Change in Mental Status Sepsis Action Taken by Nursing 06/11/25 21:00 06/11/25 21:00 06/11/25 21:12 Temperature Temperature Source Pulse Rate 87 96 H Pulse Rate [Right Finger] Pulse Rate from SpO2 Sensor 90 92 H Pulse Rhythm [Right Finger] Pulse Strength [Right Finger] Respiratory Rate 15 20 Respiratory Effort / Characteristics Respiratory Depth Respiratory Pattern Blood Pressure 139/100 Blood Pressure [Left Arm] Blood Pressure Mean 113 Blood Pressure Mean [Left Arm] Blood Pressure Position [Left Arm] Pulse Oximetry 100 99 Oxygen Delivery Method Sepsis Recent Fever Within 48 Hours Sepsis New/Unexplained Change in Mental Status Sepsis Action Taken by Nursing 06/11/25 21:21 06/11/25 21:27 06/11/25 21:33 Temperature Temperature Source Pulse Rate 105 H 96 H 97 H Pulse Rate [Right Finger] Pulse Rate from SpO2 Sensor 106 H Pulse Rhythm [Right Finger] Pulse Strength [Right Finger] Respiratory Rate 19 20 Respiratory Effort / Characteristics Respiratory Depth Respiratory Pattern Blood Pressure Blood Pressure [Left Arm] Blood Pressure Mean Blood Pressure Mean [Left Arm] Blood Pressure Position [Left Arm] Pulse Oximetry 100 Oxygen Delivery Method Sepsis Recent Fever Within 48 Hours Sepsis New/Unexplained Change in Mental Status Sepsis Action Taken by Nursing 06/11/25 21:42 06/11/25 21:51 06/11/25 22:00 Temperature Temperature Source Pulse Rate 81 94 H 91 H Pulse Rate [Right Finger] Pulse Rate from SpO2 Sensor Pulse Rhythm [Right Finger] Pulse Strength [Right Finger] Respiratory Rate 14 26 H 23 Respiratory Effort / Characteristics Respiratory Depth Respiratory Pattern Blood Pressure Blood Pressure [Left Arm] Blood Pressure Mean Blood Pressure Mean [Left Arm] Blood Pressure Position [Left Arm] Pulse Oximetry Oxygen Delivery Method Sepsis Recent Fever Within 48 Hours Sepsis New/Unexplained Change in Mental Status Sepsis Action Taken by Nursing 06/11/25 23:36 Temperature Temperature Source Pulse Rate Pulse Rate [Right Finger] 80 Pulse Rate from SpO2 Sensor Pulse Rhythm [Right Finger] Regular Pulse Strength [Right Finger] Respiratory Rate 16 Respiratory Effort / Characteristics Non-Labored Respiratory Depth Normal Respiratory Pattern Blood Pressure Blood Pressure [Left Arm] 119/87 Blood Pressure Mean Blood Pressure Mean [Left Arm] 97 Blood Pressure Position [Left Arm] Pulse Oximetry 98 Oxygen Delivery Method Room Air Sepsis Recent Fever Within 48 Hours Sepsis New/Unexplained Change in Mental Status Sepsis Action Taken by Nursing Physical Exam HENT: Exam performed. - Head: Normocephalic and atraumatic. EYES: Conjunctivae and EOM are normal. Right eye exhibits no discharge. Left eye exhibits no discharge. No scleral icterus. NECK: Normal range of motion. Neck supple. No JVD present. CV: Normal rate, regular rhythm, normal heart sounds and intact distal pulses. There is no peripheral edema. Palpable radial pulses bue. PULM/CHEST: Effort normal and breath sounds normal. No respiratory distress. No stridor. no wheezes. no rales. ABD: The abdomen is soft. There is no tenderness. NEURO: Motor and sensation grossly intact. SKIN: Skin is warm and dry. He is not diaphoretic. PSYCH: Bizarre affect. Course Course 173: The patient was evaluated in room C2. A complete history and physical exam was performed Cardiac monitoring: An order was placed for continuous cardiac monitoring. The monitor shows a rate of 80 with sinus rhythm interpreted by va 2130: Vital signs stable. Labs and imaging are unremarkable. Patient reports she still feels short of breath and is having nausea. Patient is not had any vomiting in the emergency department. Patient be evaluated for admission by [facility] hospitalist team. Administered Medications Discontinued Medications Diphenhydramine HCl (Diphenhydramine 50 Mg/Ml Vial) 25 mg IV NOW STA Stop: 06/11/25 18:52 Last Admin: 06/11/25 19:04 Dose: 25 mg Documented By: kenna Sodium Chloride (Nss) 1,000 mls @ 999 mls/hr IV .Q1H1M ONE Stop: 06/11/25 19:05 Last Infusion: 06/11/25 20:50 Dose: Infused Documented By: kenna Admin: 06/11/25 19:04 Dose: 999 mls/hr Documented By: kenna Ioversol (Optiray 320 125ml) 115 ml IV ONCE ONE Stop: 06/11/25 18:37 Last Admin: 06/11/25 18:36 Dose: 115 ml Documented By: SUSANA Ioversol (Optiray 320 100ml) 94 ml IV ONCE ONE Stop: 06/11/25 19:36 Last Admin: 06/11/25 19:35 Dose: 94 ml Documented By: Ketorolac Tromethamine (Ketorolac Tromethamine 15 Mg/Ml Vial) 15 mg IV NOW STA Stop: 06/11/25 22:14 Last Admin: 06/11/25 22:27 Dose: Not Given Documented By: kenna Metoclopramide HCl (Metoclopramide Hcl Inj 5 Mg/Ml 2 Ml Vial) 5 mg IV ONE ONE Stop: 06/11/25 18:52 Last Admin: 06/11/25 19:06 Dose: Not Given Documented By: DENNY Ondansetron HCl (Ondansetron Inj 2 Mg/Ml 2 Ml Vial) 4 mg IV NOW STA Stop: 06/11/25 19:10 Last Admin: 06/11/25 19:14 Dose: 4 mg Documented By: kenna Medical Decision Making Medical Records Attestation: I reviewed the patient's medical records. Medical records reviewed. Patient was seen for similar symptoms last night. Patient had negative blood work including negative D-dimer and troponin as well as negative CT of the head performed last night. Laboratory Data Attestation: I reviewed the patient's lab results. 06/11/25 17:45 06/11/25 17:45 Lab Results 06/11/25 06/11/25 06/11/25 Range/Units 17:45 17:54 18:10 WBC 11.86 H (4.8-10.8) K/ul RBC 4.51 (4.20-5.40) M/uL Hgb 13.3 (12.0-16.0) g/dl Hct 38.6 (37.0-47.0) % MCV 85.6 (80.0-100.0) fL MCH 29.5 (25.0-34.0) pg MCHC 34.5 (32.0-36.0) g/dL RDW Std Deviation 37.9 (36.4-46.3) fL RDW Coeff of Aniya 12.1 (11.5-14.5) % Plt Count 414 H (130-400) K/uL MPV 8.9 L (9.4-12.4) fL Immature Gran % (Auto) 0.4 % Neut % (Auto) 64.8 % Lymph % (Auto) 21.0 % [place] % (Auto) 10.1 % Eos % (Auto) 3.2 % Baso % (Auto) 0.5 % Neut # (Auto) 7.68 H (1.40-6.50) K/uL Lymph # (Auto) 2.49 (1.20-3.40) K/uL [place] # (Auto) 1.20 H (0.11-0.59) K/uL Eos # (Auto) 0.38 (0.00-0.50) K/uL Baso # (Auto) 0.06 (0.00-0.20) K/uL Immature Gran # (Auto) 0.05 (0.01-0.20) K/uL PT Cancelled INR Cancelled APTT Cancelled PTT Ratio Cancelled VBG pH (7.36-7.41) VBG pCO2 (38-50) mmHg VBG pO2 mmHg VBG HCO3 mmol/L VBG O2 Saturation % VBG Base Excess mEq/L Sodium 140 (136-145) mmol/L Potassium 3.6 (3.5-5.1) mmol/L Chloride 106 (98-107) mmol/L Carbon Dioxide 23 (21-32) mmol/L Anion Gap 11 (3-11) BUN 5 L (6-23) mg/dl Creatinine 0.68 (0.6-1.2) mg/dl Est Cr Clr Drug Dosing Not Reportable eGFR 120.83 BUN/Creatinine Ratio 7.4 L (10-20) Glucose 115 H (70-99(Fasting)) mg/dl Calcium 10.2 (8.6-10.3) mg/dl Magnesium 2.0 (1.7-2.4) mg/dl Total Bilirubin 0.9 (0.2-1.0) mg/dl AST 11 L (13-39) U/L ALT 9 (7-52) U/L Alkaline Phosphatase 57 (34-104) U/L Troponin I High Sens < 2.3 (0-14) pg/ml Total Protein 8.0 (6.0-8.3) gm/dl Albumin 4.6 (3.4-5.0) gm/dl Globulin 3.4 (2.5-4.0) gm/dl Albumin/Globulin Ratio 1.4 (0.9-2) Lipase 8 L (11-82) U/L Urine Color Urine Appearance (Clear) Urine pH (4.5-7.5) Ur Specific Shiner (1.000-1.030) Urine Protein (Negative) Urine Glucose (UA) (Negative) Urine Ketones (Negative) Urine Blood (Negative) Urine Nitrite (Negative) Urine Bilirubin (Negative) Urine Urobilinogen (Negative) Ur Leukocyte Esterase (Negative) Urine WBC (Auto) (0-5) /hpf Urine RBC (Auto) (0-2) /hpf U Hyaline Cast (Auto) (0-2) /lpf U Epithel Cells (Auto) (0-2) /hpf Urine Bacteria (Auto) (None Seen) Urine Test (Negative) Urine Comment Stl C. cayetanensis PCR Not Detected (NotDetected) Stool Rotavirus A PCR Not Detected (NotDetected) Stl Adenov F 40/41 PCR Not Detected (NotDetected) Stool Astrovirus (PCR) Not Detected (NotDetected) Stool Campylobacter PCR Not Detected (NotDetected) Stl C. diff Tox B Gene Negative Cdiff Gene (Neg) Stl C. diff 027-NAP1-BI NEGATIVE Stool Cryptosporidium PCR Not Detected (NotDetected) Stl E.coli Shiga Tox PCR Not Detected (NotDetected) Stl Enterotoxigenic E PCR Not Detected (NotDetected) Stool EPEC (PCR) Not Detected (NotDetected) Stool EAEC (PCR) Not Detected (NotDetected) Stl E. histolytica PCR Not Detected (NotDetected) Stool Giardia Lamblia PCR Not Detected (NotDetected) Stool Salmonella PCR Not Detected (NotDetected) Stool Sapovirus (PCR) Not Detected (NotDetected) Stl P. shigelloides PCR Not Detected (NotDetected) Stl Shigella/EIEC PCR Not Detected (NotDetected) St Y.enterocolitica PCR Not Detected (NotDetected) Stool Vibrio (PCR) Not Detected (NotDetected) Stl Vibrio cholerae PCR Not Detected (NotDetected) Stl Norovirus GI/GII PCR Not Detected (NotDetected) Adenovirus (PCR) Not Detected (NotDetected) B. pertussis DNA (PCR) Not Detected (NotDetected) B.parapertussis DNA PCR Not Detected (NotDetected) C. pneumoniae DNA (PCR) Not Detected (NotDetected) Coronavirus OC43 (PCR) Not Detected (NotDetected) Coronavirus HKU1 (PCR) Not Detected (NotDetected) Coronavirus 229E (PCR) Not Detected (NotDetected) SARS-CoV-2 (PCR) Not Detected (NotDetected) Coronavirus NL63 (PCR) Not Detected (NotDetected) Human Metapneumovir PCR Not Detected (NotDetected) Influenza Type A (PCR) Not Detected (NotDetected) Influenza Type B (PCR) Not Detected (NotDetected) M. pneumoniae (PCR) Not Detected (NotDetected) Parainfluenza 1 (PCR) Not Detected (NotDetected) Parainfluenza 2 (PCR) Not Detected (NotDetected) Parainfluenza 3 (PCR) Not Detected (NotDetected) Parainfluenza 4 (PCR) Not Detected (NotDetected) RSV (PCR) Not Detected (NotDetected) Entero/Rhino (PCR) Not Detected (NotDetected) Group A Strep (PCR) NOT DETECTED (NotDetected) 06/11/25 06/11/25 Range/Units 18:16 Unknown WBC (4.8-10.8) K/ul RBC (4.20-5.40) M/uL Hgb (12.0-16.0) g/dl Hct (37.0-47.0) % MCV (80.0-100.0) fL MCH (25.0-34.0) pg MCHC (32.0-36.0) g/dL RDW Std Deviation (36.4-46.3) fL RDW Coeff of Aniya (11.5-14.5) % Plt Count (130-400) K/uL MPV (9.4-12.4) fL Immature Gran % (Auto) % Neut % (Auto) % Lymph % (Auto) % [place] % (Auto) % Eos % (Auto) % Baso % (Auto) % Neut # (Auto) (1.40-6.50) K/uL Lymph # (Auto) (1.20-3.40) K/uL [place] # (Auto) (0.11-0.59) K/uL Eos # (Auto) (0.00-0.50) K/uL Baso # (Auto) (0.00-0.20) K/uL Immature Gran # (Auto) (0.01-0.20) K/uL PT INR APTT PTT Ratio VBG pH 7.40 (7.36-7.41) VBG pCO2 39 (38-50) mmHg VBG pO2 81 mmHg VBG HCO3 24 mmol/L VBG O2 Saturation 97.4 % VBG Base Excess -0.5 mEq/L Sodium (136-145) mmol/L Potassium (3.5-5.1) mmol/L Chloride (98-107) mmol/L Carbon Dioxide (21-32) mmol/L Anion Gap (3-11) BUN (6-23) mg/dl Creatinine (0.6-1.2) mg/dl Est Cr Clr Drug Dosing eGFR BUN/Creatinine Ratio (10-20) Glucose (70-99(Fasting)) mg/dl Calcium (8.6-10.3) mg/dl Magnesium (1.7-2.4) mg/dl Total Bilirubin (0.2-1.0) mg/dl AST (13-39) U/L ALT (7-52) U/L Alkaline Phosphatase (34-104) U/L Troponin I High Sens (0-14) pg/ml Total Protein (6.0-8.3) gm/dl Albumin (3.4-5.0) gm/dl Globulin (2.5-4.0) gm/dl Albumin/Globulin Ratio (0.9-2) Lipase (11-82) U/L Urine Color Dark Yellow Urine Appearance Clear (Clear) Urine pH 8.0 H (4.5-7.5) Ur Specific Shiner 1.015 (1.000-1.030) Urine Protein Negative (Negative) Urine Glucose (UA) Negative (Negative) Urine Ketones Negative (Negative) Urine Blood Negative (Negative) Urine Nitrite Negative (Negative) Urine Bilirubin Negative (Negative) Urine Urobilinogen Negative (Negative) Ur Leukocyte Esterase Trace H (Negative) Urine WBC (Auto) 6-10 H (0-5) /hpf Urine RBC (Auto) 0-2 (0-2) /hpf U Hyaline Cast (Auto) 0-2 (0-2) /lpf U Epithel Cells (Auto) 3-5 H (0-2) /hpf Urine Bacteria (Auto) 2+ H (None Seen) Urine Test Negative (Negative) Urine Comment Stl C. cayetanensis PCR (NotDetected) Stool Rotavirus A PCR (NotDetected) Stl Adenov F 40/41 PCR (NotDetected) Stool Astrovirus (PCR) (NotDetected) Stool Campylobacter PCR (NotDetected) Stl C. diff Tox B Gene (Neg) Stl C. diff [id number] Stool Cryptosporidium PCR (NotDetected) Stl E.coli Shiga Tox PCR (NotDetected) Stl Enterotoxigenic E PCR (NotDetected) Stool EPEC (PCR) (NotDetected) Stool EAEC (PCR) (NotDetected) Stl E. histolytica PCR (NotDetected) Stool Giardia Lamblia PCR (NotDetected) Stool Salmonella PCR (NotDetected) Stool Sapovirus (PCR) (NotDetected) Stl P. shigelloides PCR (NotDetected) Stl Shigella/EIEC PCR (NotDetected) St Y.enterocolitica PCR (NotDetected) Stool Vibrio (PCR) (NotDetected) Stl Vibrio cholerae PCR (NotDetected) Stl Norovirus GI/GII PCR (NotDetected) Adenovirus (PCR) (NotDetected) B. pertussis DNA (PCR) (NotDetected) B.parapertussis DNA PCR (NotDetected) C. pneumoniae DNA (PCR) (NotDetected) Coronavirus OC43 (PCR) (NotDetected) Coronavirus HKU1 (PCR) (NotDetected) Coronavirus 229E (PCR) (NotDetected) SARS-CoV-2 (PCR) (NotDetected) Coronavirus NL63 (PCR) (NotDetected) Human Metapneumovir PCR (NotDetected) Influenza Type A (PCR) (NotDetected) Influenza Type B (PCR) (NotDetected) M. pneumoniae (PCR) (NotDetected) Parainfluenza 1 (PCR) (NotDetected) Parainfluenza 2 (PCR) (NotDetected) Parainfluenza 3 (PCR) (NotDetected) Parainfluenza 4 (PCR) (NotDetected) RSV (PCR) (NotDetected) Entero/Rhino (PCR) (NotDetected) Group A Strep (PCR) (NotDetected) Imaging Data Radiologist's Impression: Chest X-Ray 06/11/25 17:12 Chest radiograph, one view History: Shortness of breath Comparison: None Findings: Single AP view of the chest performed. No focal consolidation or pleural effusion. No pneumothorax. The cardiomediastinal silhouette is within normal limits. Normal pulmonary vascularity. No evidence for lymphadenopathy. No visualized bony or soft tissue abnormality. Impression: Normal chest radiograph Electronically signed by Oliver Dietrich 06-11-2025 5:54 PM Abdomen/Pelvis CT 06/11/25 17:45 Technique: Axial computed tomography images were obtained of the abdomen and pelvis after the administration of intravenous contrast. Comparison is made to the prior CT dated 09/23/2024. Findings: The liver is overall of normal size, attenuation, and contour with no sign of cirrhosis or significant fatty infiltration. No liver mass lesion is seen. The portal vein is patent. The gallbladder appears unremarkable. No bile duct dilatation is noted. The spleen is of normal size. No focal splenic lesion is evident. The pancreas appears normal with no sign of acute or chronic pancreatitis and no mass lesion noted. The pancreatic duct is of normal caliber. The adrenal glands appear unremarkable. No definite renal or proximal ureteral calculi are seen on this contrast-enhanced study. There is no hydronephrosis or perinephric stranding. No renal mass lesion is identified. There is a 9 mm right renal cyst and there is a 3 mm left renal cyst The aorta is of normal caliber. No abdominal adenopathy is seen. The stomach appears normal. There is no sign of small bowel obstruction. The colon appears unremarkable. The appendix appears normal also. No free intraperitoneal fluid or air is identified. No distal ureteral or bladder calculi are seen. No bladder mass lesion is evident. The iliac arteries are of normal caliber. No pelvic adenopathy is noted. There is a 1.8 cm right ovarian cyst and there is a 2.7 cm left ovarian cyst The lungs bases appear clear. No fracture is identified. No focal osseous lesion is seen Impression: 1. Small bilateral renal cysts 2. Bilateral ovarian cysts, likely benign. A pelvic ultrasound could be considered for further evaluation Electronically signed by Arturo Cortes 06-11-2025 7:[address] 06/11/25 17:45 CT HEAD: HISTORY: Headaches. Nausea and vomiting. TECHNIQUE: Noncontrast CT examination of the head is performed. Coronal and sagittal reformats were created. COMPARISON: Brain CT one day previous FINDINGS: There is no evidence of intracranial hemorrhage, focal mass effect or midline shift. No fluid collection is identified. The ventricular system is midline and symmetric. No evidence of acute major vascular territory infarction. Stent over the right transverse sinus is again seen. No calvarial fracture is identified. The mastoids are well aerated. Small fluid in the sphenoid sinuses. IMPRESSION: No acute intracranial process identified. Electronically signed by Gonzales Matthews 06-11-2025 6:58 PM ECG Data Attestation: I personally reviewed and interpreted this ECG as follows: Rate (beats per minute): 86 Rhythm: + normal sinus ECG Intervals/blocks: + Normal QRS, + Normal [place] and + Normal QT-c ECG ST segments: + Normal ST segments [facility] Narrative 1738: The patient was evaluated in room C2. A complete history and physical exam was performed Cardiac monitoring: An order was placed for continuous cardiac monitoring. The monitor shows a rate of 80 with sinus rhythm interpreted by va 2130: Vital signs stable. Labs and imaging are unremarkable. Patient reports she still feels short of breath and is having nausea. Patient is not had any vomiting in the emergency department. Patient be evaluated for admission by [facility] hospitalist team. Impression & Plan Dyspnea, Nausea vomiting and diarrhea Discharge Plan Visit Data Chief Complaint: Shortness of Breath/Dyspnea Stated Complaint: SOB, TOUBLE SWALLOWING, VOMITING, DIARRHEA ED Provider: Yakov Thompson Discharge Problem: Dyspnea, Nausea vomiting and diarrhea Patient Disposition: Admitted As Inpatient Condition: Fair Discharge Instructions Interventions: ED Discharge Assessment Last Done: 06/11/25 23:44 Forms Stand Alone Forms: My [facility] [employer] Prescriptions Prescriptions: No Action Qulipta 60 mg tablet 60 mg PO DAILY 30 Days Qty: 30 2RF gabapentin 300 mg capsule 900 mg PO QPM ergocalciferol (vitamin D2) 1,250 mcg (50,000 unit) capsule 1,250 mcg PO WK Rx Instructions: SUNDAYS ondansetron HCl 4 mg tablet 4 mg PO Q6H PRN (Reason: NAUSEA/VOMITING) aspirin 81 mg tablet 81 mg PO DAILY clopidogrel [Plavix] 75 mg tablet 75 mg PO DAILY hydroxyzine HCl 50 mg tablet 50 mg PO HS PRN (Reason: Anxiety) levothyroxine 75 mcg tablet 75 mcg PO DAILY Qty: 90 3RF albuterol sulfate 90 mcg/actuation HFA aerosol inhaler 2 puff inhalation Q6H PRN (Reason: sob) epinephrine 0.3 mg/0.3 mL auto-injector 0.3 mg IM ONCE PRN (Reason: Allergic Reaction) Rx Instructions: for 2 doses amoxicillin-pot clavulanate 875-125 mg tablet 1 tab PO BID Ubrelvy 100 mg tablet 100 mg PO UD PRN (Reason: migraine) Rx Instructions: 100 mg orally take once at migraine onset; may repeat after two hours prn PRN; ketotifen fumarate 0.025 % (0.035 %) drops 1 drp OPB BID Rx Instructions: 06/03/25 FOR 10 DAYS neomycin-polymyxin B-dexameth 3.5 mg/g-10,000 unit/g-0.1 % ointment 1 applic OPB DIRECTED Referrals Referrals: Oliver Dempsey MD [Primary Care Provider] -
[2025-06-11] MEDS ORDERED: NEOMYCIN/POLYMYXIN/DEXAMETHA OP OINT 3.5 GM TUBE OPB SCH (23:54)
[2025-06-11] MEDS ORDERED: ACETAMINOPHEN 325 MG TAB PO PRN (23:54)
[2025-06-11] MEDS ORDERED: ALBUTEROL HFA 8 GM INHALER INH PRN (23:54)
[2025-06-12] MEDS: LACTATED RINGER'S 1,000 ML IV SCH (00:53)
[2025-06-12] MEDS: FAMOTIDINE 20MG IV PUSH 20 MG/5 ML SYR IV SCH (00:53)
[2025-06-12] MEDS: LEVOTHYROXINE SODIUM 75 MCG TABLET PO SCH (05:45)
[2025-06-12] MEDS: ONDANSETRON INJ 2 MG/ML 2 ML VIAL IV PRN (06:01)
[2025-06-12 07:30] LABS: Hematocrit (blood only) 33.7 % (37.0-47.0); Hemoglobin 11.3 g/dl (12.0-16.0); Mean Corpuscular Hemoglobin 29.0 pg (25.0-34.0); Mean Corpuscular Volume 86.6 fL (80.0-100.0); Platelet Count 322 K/uL (130-400); RDW Standard Deviation 38.5 fL (36.4-46.3); Red Blood Count 3.89 M/uL (4.20-5.40); White Blood Count 9.20 K/ul (4.8-10.8)
[2025-06-12 07:47] LABS: Anion Gap 7.0 (3-11); Blood Urea Nitrogen 5.0 mg/dl (6-23); Calcium 8.9 mg/dl (8.6-10.3); Carbon Dioxide 26.0 mmol/L (21-32); Chloride 107.0 mmol/L (98-107); Creatinine Clr Calc Pharmacy 110.4 ml/min; Glucose 91.0 mg/dl (70-99(Fasting)); Potassium 3.6 mmol/L (3.5-5.1); Sodium 140.0 mmol/L (136-145)
[2025-06-12] MEDS: ASPIRIN 81 MG ECTAB PO SCH (09:28)
[2025-06-12] MEDS: CLOPIDOGREL BISULFATE 75 MG TAB PO SCH (09:28)
[2025-06-12] MEDS: cefTRIAXone SODIUM 1,000 MG/50 ML BAG IV SCH (09:30)
[2025-06-12] MEDS: PANTOprazole 40 MG/10 ML SYR IV SCH (09:30)
[2025-06-12] MEDS: POLYETHYLENE (MIRALAX) 17 GM PACK PO SCH (09:30)
--- NOTE | 2025-06-12 11:33 | Hospitalist Progress Note ---
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 VS continue to be normal and hemodynamically stable. CT abd/pelvis w/ stool burden, proceeding with Miralax with idea to escalate to GoLytely if unsuccessful. Requires continued hospitalization for monitoring, medical management, and to ensure PO tolerance closer to baseline. #Constipation, severe #Overflow diarrhea/nausea/vomiting CT abd/pelvis 06/11/25 showing significant stool burden particularly from mid- transverse colon to sigmoid colon, explained notion of "overflow diarrhea" to pt with understanding Negative stool and respiratory biofire, though viral gastroenteritis is still on the differential - prescribed Miralax 51g, if unsuccessful will proceed with GoLytely Telemetry unremarkable, can likely be taken off tele due to lack of evidence supporting cardiac etiology LR 80cc/hr maintenance while having suboptimal PO intake, trying to tolerate regular diet Pepcid 20 mg IV twice daily Protonix 40 mg IV daily Zofran and Compazine as needed for nausea #Possible UTI, leukocytosis resolved UA with 2+ bacteria, trace leuks; preg neg leukocytosis improving - continue ceftriaxone for now while PO is still low and while abd pain cause it being addressed; lower suspicion of intraabdominal infection or abscess based on rather benign exam #Normocytic anemia, new Hgb dec from 13.3 -> 11.3 over one day, likely 2/2 dilution from IV fluids overnight - no obvious signs or symptoms that would indicate bleeding - CBC in AM to trend #Idiopathic Intracranial Hypertension s/p kacie. sinus stent placement Apr 2025 Continue Plavix and aspirin #Migrainepatient takes Ubrelvy as well as atogepant at home. 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 from [facility] provided it is filled -Tylenol, Magnesium, steroids, Reglan could be considered if patient develops migraine #Dyspneapatient describes dyspnea, palpitations, dizziness with positional changes, worse when lying flat vitals stable with O2 sats consistently above 96% - possible that her severe constipation is contributing as well, so will proceed with above stool regimen and see if this improves dyspnea - if no improvement after relief of stool burden, will consider sleep study for BRIANNA, can be done outpatient provided vitals remain stable - check orthostatics as ordered #Hypothyroidism TSH = 2.25 on 05/2025. Continue Synthroid 25 mcg p.o. daily # Anxietyfeel that many of patient's symptoms this evening could be secondary to anxiety. Question possible vocal cord dysfunction as explanation for he throat fullness, hoarsness and SOB? Continue hydroxyzine. Will increase to 50 mg p.o. 3 times daily as needed for anxiety Continue gabapentin 100 mg p.o. every afternoon VTE ppx- ambulation Admission and Anticipated Discharge Date Admission Date: June 11, 2025 Supervising Physician Co-Signing Physician Notes I personally examined the patient and verified all dunn points of history and exam, discussed case, and agree with decision making with Dr Walker took miralax - many many BMs since but most watery, a little solid vitalsnoted nad heent nc at mmm breathing unlabored no accessory muscles good effort skin nor ashes no pallor or icterus diarrhea - overflow - showed CT images to pt - she expresses understanding. 51 miralax clearly inadequate response - bowel prep echo reassuring otherwise as above Subjective Naomi was seen and evaluated at bedside this AM. Endorses continued abdominal pain with profuse diarrhea, reported breathing difficulty especially when lying flat. Discussed CT scan findings including severe stool burden, likely signifying significant constipation. On board with trying to flush it out with Miralax. 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 Requesting that her Ubrelvy rx be sent to [facility], and will have someone pick that up and bring to her if it is filled without issue. Physical Exam Physical Exam: General: in no acute distress, VSS CV: RRR, +s1/s2, no m/r/g Resp: clear to auscultation b/l, equal air entry b/l, no rales/rhonchi/wheeze GI/Abd: +BS, abdomen soft and nondistended, tenderness to palpation of general abdomen, mostly LLQ>RLQ, no masses/organomegaly/ascites Ext: warm, 2+ no clubbing/cyanosis or edema Neuro: no focal deficits, speech intact Results & Data Results & Data Vital Signs (Past 12 Hours) Vital Signs Temp Pulse Pulse Resp BP Pulse Ox O2 Del Method 06/12/25 08:21 36.7 C 83 17 113/77 97 Room Air 06/12/25 07:34 76 06/12/25 03:09 36.5 C 80 18 115/79 98 Room Air 06/12/25 00:18 36.7 C 89 19 108/78 97 Room Air 06/12/25 00:09 88 06/11/25 23:36 80 16 119/87 98 Room Air Resident Activity Tracking Resident Involvement: Resident Care Provided Care Provided: Adult Hospital Medicine (1) Constipation Constipation type: unspecified constipation type Qualified Code(s): K59.00 - Constipation, unspecified (4) Dyspnea Dyspnea type: orthopnea Qualified Code(s): R06.01 - Orthopnea
--- NOTE | 2025-06-12 14:34 | XCELERA ---
[id number]
[2025-06-12] MEDS: ATOGEPANT (QULIPTA) 60 MG TAB PO SCH (14:56)
[2025-06-12] MEDS: UBROGEPANT 100 MG TAB PO SCH (14:56)
[2025-06-12] MEDS: PROCHLORPERAZINE 5 MG in SYRINGE 4 ML IV PRN (15:42)
--- NOTE | 2025-06-12 17:10 | Billing Data ---
Date of Service June 12, 2025 Coding Level of Care Code 39569 SUB INP/OBS CARE
[2025-06-12] MEDS ORDERED: LAVAGE SOLUTION 4000ML PO SCH (17:16)
[2025-06-12] MEDS: GABAPENTIN 300 MG CAP PO PRN (17:18)
[2025-06-12] MEDS: GABAPENTIN 300 MG CAP PO SCH (21:14)
[2025-06-13 05:59] LABS: Hematocrit (blood only) 32.9 % (37.0-47.0); Hemoglobin 10.8 g/dl (12.0-16.0); Mean Corpuscular Hemoglobin 28.6 pg (25.0-34.0); Mean Corpuscular Volume 87.3 fL (80.0-100.0); Platelet Count 310 K/uL (130-400); RDW Standard Deviation 38.8 fL (36.4-46.3); Red Blood Count 3.77 M/uL (4.20-5.40); White Blood Count 9.40 K/ul (4.8-10.8)
[2025-06-13 06:16] LABS: Anion Gap 6.0 (3-11); Blood Urea Nitrogen 4.0 mg/dl (6-23); Calcium 8.9 mg/dl (8.6-10.3); Carbon Dioxide 27.0 mmol/L (21-32); Chloride 108.0 mmol/L (98-107); Creatinine Clr Calc Pharmacy 111.9 ml/min; Glucose 87.0 mg/dl (70-99(Fasting)); Potassium 3.5 mmol/L (3.5-5.1); Sodium 141.0 mmol/L (136-145)
--- NOTE | 2025-06-13 07:40 | Hospitalist Progress Note ---
Date of Service June 13, 2025 Assessment & Plan (1) Constipation: (2) Overflow diarrhea: (3) Nausea vomiting and diarrhea: (4) Dyspnea: (5) Anxiety: Plan Naomi is a 30 year-old female with history of IIH w/ venous sinus stent placed in Apr 2025, migraines, bipolar depression presenting with abdominal pain, profuse diarrhea, and dysphagia, admitted for abdominal pain with diarrhea. VS continue to be normal and hemodynamically stable. CT abd/pelvis w/ stool burden, GoLytely has been going well. Requires continued hospitalization for monitoring, medical management, and to ensure PO tolerance closer to baseline. #Constipation, severe #Overflow diarrhea/nausea/vomiting CT abd/pelvis 06/11/25 showing significant stool burden particularly from mid- transverse colon to sigmoid colon, explained notion of "overflow diarrhea" to pt with understanding Negative stool and respiratory biofire - continuing GoLytely with good effect, improving essentially all of pt's worrisome symptoms LR 80cc/hr maintenance while having suboptimal PO intake, tolerating regular diet Pepcid 20 mg IV twice daily Protonix 40 mg IV daily Zofran and Compazine as needed for nausea #Possible UTI, leukocytosis resolved UA with 2+ bacteria, trace leuks; preg neg - d/c CTX #Normocytic anemia, new Hgb dec from 11.3 -> 10.8, likely 2/2 dilution from IV fluids - no obvious signs or symptoms that would indicate bleeding - CBC in AM to trend #Idiopathic Intracranial Hypertension s/p kacie. sinus stent placement Apr 2025 Continue Plavix and aspirin #Migrainepatient takes Ubrelvy as well as atogepant at home. Non-formulary here -home Ubrelvy, atogepant -Tylenol, Magnesium, steroids can be considered #Dyspnea significantly improved since much of stool burden has been relieved by golytely #Hypothyroidism TSH = 2.25 on 05/2025. Continue Synthroid 25 mcg p.o. daily # Anxiety Continue hydroxyzine, 50 mg TID as needed for anxiety Continue gabapentin as prescribed VTE ppx- ambulation Admission and Anticipated Discharge Date Admission Date: June 11, 2025 Shani Salgado was seen and evaluated at bedside this AM. 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 Belly pain has significantly improved, as well as breathing and swallowing concerns. Headaches are much improved as she was able to take her home Ubrelvy. Iffy about whether going home today vs tomorrow. Physical Exam Physical Exam: General: in no acute distress, VSS CV: RRR, +s1/s2, no m/r/g Resp: clear to auscultation b/l, equal air entry b/l, no rales/rhonchi/wheeze GI/Abd: +BS, abdomen soft and nondistended, improving tenderness to palpation of general abdomen, mostly LLQ>RLQ, no masses/organomegaly/ascites Ext: warm, 2+ no clubbing/cyanosis or edema Neuro: no focal deficits, speech intact Results & Data Results & Data Vital Signs (Past 12 Hours) Vital Signs Temp Pulse Resp BP Pulse Ox O2 Del Method 06/12/25 22:43 36.6 C 75 20 112/78 100 Room Air Resident Activity Tracking Resident Involvement: Resident Care Provided Care Provided: Adult Hospital Medicine (1) Constipation Constipation type: unspecified constipation type Qualified Code(s): K59.00 - Constipation, unspecified (4) Dyspnea Dyspnea type: orthopnea Qualified Code(s): R06.01 - Orthopnea
[2025-06-13 08:05] VITALS: RESP 14; TEMP 98.6
[2025-06-13] MEDS: PLASMA-LYTE A 1,000 ML IV SCH (09:23)
[2025-06-13] MEDS: GABAPENTIN 600 MG TAB PO PRN (10:25)
[2025-06-13 15:58] VITALS: BP 123/86; PULSE 71; O2SAT 100
--- NOTE | 2025-06-13 17:18 | XRay Report ---
Abdominal radiograph, one view History: Abdominal pain Comparison: 06/11/2025 Findings: Single AP view of the abdomen performed. The bowel gas pattern appears nonobstructive. Mild air throughout the large bowel, without a substantial stool burden identified. No pneumatosis or portal venous gas. No abnormal calcifications project over the abdomen. No acute abnormality of the bony structures. Impression: Nonobstructive bowel gas pattern Electronically signed by Oliver Dietrich 06-13-2025 5:18 PM
--- NOTE | 2025-06-13 18:11 | Discharge Summary ---
Date of Service June 13, 2025 Admission HPI Per Admitting Provider Naomi Quiñones is a 30 yo female with history of pseudotumor cerebri status post WHARFMASTER stent placed 04/14/[address] [facility], bipolar depression, migraine, asthma presenting with multiple complaints. Patient reports that she developed chest pain sometime in February after having her brain surgery performed. The pain at first was typically sharp in nature, anterior chest, occurs with lying down and not sleeping. However, of late she has been experiencing the pain while sitting up as well. She has also been having shortness of breath. She reports feeling a fullness in her throat with the feeling of a lump and difficulty swallowing as well as some tightness. This has been ongoing for the last few months. Also with complaint of vertigo which occurs with deep breathing as well as tingling of her lips and around her mouth as well as her arms. She also occasionally gets sharp pain in her head, sharp pains in her chest, intermittent palpitations as well as headache. Additionally, patient has been complaining of nausea with several episodes of nonbloody/nonbilious emesis as well as multiple episodes of watery diarrhea. She thinks this may be associated with the sodium bicarbonate which she has been taking. She recently stopped this medication and her GI symptoms have been improving over the last day. She reports some increased urinary frequency and increased urine output as well. No dysuria, flank pain, fever. Has been experiencing some chills. There are patient is afebrile, hemodynamically stable and nontoxic in appearance Admission Exam Per Admitting Provider General: patient resting comfortably, NAD, non-toxic in appearance, AA&O x 4 Skin: warm, dry, intact, no rashes or lesions HEENT: NC/AT, PERRL, EOMI, anicteric sclera, conjunctiva without injection, external ear normal to inspection and nontender, nares patent, moist mucus membranes, dentition intact, no oropharyngeal lesions, neck supple, trachea midline, no LAD, no thyromegaly, no JVD Heart: +S1/S2, regular, no m/r/g Lungs: equal air entry bilaterally, no rales/rhonchi/wheezes Abd: +BS, soft, NT/ND, no masses/organomegaly/ascites Ext: warm, 2+ pulses in UE/LE bilaterally, no clubbing/cyanosis or edema Neuro: nonfocal, patient AA&O x 4, speech intact, no facial droop, moving all extremities on command with equal strength 5/5 Principal Diagnosis severe constipation Discharge Exam General: in no acute distress, VSS CV: RRR, +s1/s2, no m/r/g Resp: clear to auscultation b/l, equal air entry b/l, no rales/rhonchi/wheeze GI/Abd: +BS, abdomen soft and nondistended, improving tenderness to palpation of general abdomen, mostly LLQ>RLQ, no masses/organomegaly/ascites Ext: warm, 2+ no clubbing/cyanosis or edema Neuro: no focal deficits, speech intact Discharge Data Allergies Allergy/AdvReac Type Severity Reaction Status Date / Time Latex, Natural Rubber Allergy Severe Hives Verified 06/11/25 21:02 peanut Allergy Intermediate HIVES Verified 06/11/25 21:02 tree nut Allergy Intermediate HIVES Verified 06/11/25 21:02 latex Allergy Mild rash Verified 06/11/25 21:02 calcium carbonate [From DHEA] Allergy Unknown Unknown Verified 06/11/25 21:02 calcium phosphate,dibasic Allergy Unknown Unknown Verified 06/11/25 21:02 [From DHEA] prasterone (DHEA) [From DHEA] Allergy Unknown Unknown Verified 06/11/25 21:02 fluoxetine [From Prozac] AdvReac Unknown Unknown Verified 06/11/25 21:02 lactose intolerance AdvReac Intermediate Abdominal Uncoded 06/11/25 21:02 Pain Consultations 06/11/25 21:29 ED Decision to Admit Stat Ordered Studies 06/11/25 17:45 CT abd pelvis IV con only Stat CT head/brain wo con Stat Hospital Course (1) Constipation: (2) Overflow diarrhea: (3) Nausea vomiting and diarrhea: (4) Dyspnea: (5) Anxiety: Plan Naomi is a 30 year-old female with history of IIH w/ venous sinus stent placed in Apr 2025, migraines, bipolar depression presenting with abdominal pain, profuse diarrhea, and dysphagia, admitted for abdominal pain with diarrhea. VS continue to be normal and hemodynamically stable. CT abd/pelvis w/ stool burden, GoLytely has been going well. Requires continued hospitalization for monitoring, medical management, and to ensure PO tolerance closer to baseline. #Constipation, severe #Overflow diarrhea/nausea/vomiting CT abd/pelvis 06/11/25 showing significant stool burden particularly from mid- transverse colon to sigmoid colon, explained notion of "overflow diarrhea" to pt with understanding Negative stool and respiratory biofire - GoLytely had therapeutic effect, feeling good enough to go home Will proceed with Miralax 17g BID to titrate in order to achieve 1 soft BM daily Followup with PCP office this week #Possible UTI, leukocytosis resolved UA with 2+ bacteria, trace leuks; preg neg - d/c CTX #Normocytic anemia, new Hgb dec from 11.3 -> 10.8, likely 2/2 dilution from IV fluids - no obvious signs or symptoms that would indicate bleeding - CBC later this week to trend #Idiopathic Intracranial Hypertension s/p kacie. sinus stent placement Apr 2025 Continue Plavix and aspirin #Migrainepatient takes Ubrelvy as well as atogepant at home. Non-formulary here -home Ubrelvy, atogepant #Dyspnea significantly improved since much of stool burden has been relieved by golytely #Hypothyroidism TSH = 2.25 on 05/2025. Continue Synthroid 25 mcg p.o. daily # Anxiety Continue hydroxyzine, 50 mg TID as needed for anxiety Continue gabapentin as prescribed VTE ppx- ambulation Total Time Total Time Spent Total Time Spent (In Minutes): >30 Discharge Plan Discharge Items Patient Disposition: Home - Self-Care Reason For Visit: DIZZINESS, PALPITATIONS Discharge Diagnosis: severe constipation Condition on Discharge: Fair Activity: Resume your previous activity Non-emergency contact: Primary Care Provider Call non-emergency contact if: your symptoms worsen and your pain is not controlled Follow-up/Referrals: Oliver Dempsey MD [Primary Care Provider] - Teto Walker DO [Resident] - Diet: Regular Addtl Attending Provider Instructions: You were admitted for abdominal pain, profuse diarrhea, nausea, vomiting. Initially thought to be infectious, it became apparent based on your current and prior CT abdomen/pelvis scans that you had a severe stool burden, making constipation with overflow diarrhea the most reasonable cause of your pain and associated symptoms. Miralax did not help initially, but GoLytely was able to relieve you of the stool burden. You have also been eating closer to your baseline due to improvement of nausea and appetite. Based on your clinical improvement and medical stability, we are comfortable with your discharge today. Please follow up closely with your PCP or Dr. Walker, who works in the same office as Dr. Dempsey, ideally sometime this week. We also highly recommend that you continue a Miralax regimen to prevent such significant constipation from recurring. #Constipation, severe #Overflow diarrhea/nausea/vomiting CT abd/pelvis 06/11/25 showing significant stool burden, present on prior CT abd/pelvis from earlier in the year as well - proceeded with GoLytely with intended effect Home constipation prevention: start with Miralax 17g (one capful) twice daily, may adjust dose and frequency on a day-to-day basis, based on day prior, in order to achieve about 1 soft but formed stool per day may continue OTC Pepcid for nausea and heartburn - followup at neighboring [facility] clinic this week for close followup #Normocytic anemia, new Hemoglobin decreased from 11.3 -> 10/8, likely due to dilution from IV fluids - no obvious signs or symptoms that would support bleeding - recommended outpatient CBC within a week to ensure stable #Idiopathic Intracranial Hypertension s/p kacie. sinus stent placement Apr 2025 Continue Plavix and aspirin #Migrainepatient takes Ubrelvy as well as atogepant at home. Non-formulary here -home Ubrelvy, atogepant #Dyspnea significantly improved since much of stool burden has been relieved by golytely - Miralax regimen as above #Hypothyroidism TSH = 2.25 on 05/2025. Continue Synthroid 25 mcg p.o. daily # Anxiety Continue hydroxyzine, 50 mg TID as needed for anxiety Continue gabapentin as prescribed Pending Studies at Discharge: No Stand-Alone Forms: My [facility] [employer], Smoking Cessation Medications and DC Order Prescriptions: New polyethylene glycol 3350 [Miralax] 17 gram powder in packet 17 g PO BID Qty: 30 0RF Continued Qulipta 60 mg tablet 60 mg PO DAILY 30 Days Qty: 30 2RF gabapentin 300 mg capsule 900 mg PO QPM ergocalciferol (vitamin D2) 1,250 mcg (50,000 unit) capsule 1,250 mcg PO WK Rx Instructions: SUNDAYS ondansetron HCl 4 mg tablet 4 mg PO Q6H PRN (Reason: NAUSEA/VOMITING) aspirin 81 mg tablet 81 mg PO DAILY clopidogrel [Plavix] 75 mg tablet 75 mg PO DAILY hydroxyzine HCl 50 mg tablet 50 mg PO HS PRN (Reason: Anxiety) levothyroxine 75 mcg tablet 75 mcg PO DAILY Qty: 90 3RF albuterol sulfate 90 mcg/actuation HFA aerosol inhaler 2 puff inhalation Q6H PRN (Reason: sob) epinephrine 0.3 mg/0.3 mL auto-injector 0.3 mg IM ONCE PRN (Reason: Allergic Reaction) Rx Instructions: for 2 doses amoxicillin-pot clavulanate 875-125 mg tablet 1 tab PO BID Ubrelvy 100 mg tablet 100 mg PO UD PRN (Reason: migraine) Rx Instructions: 100 mg orally take once at migraine onset; may repeat after two hours prn PRN; ketotifen fumarate 0.025 % (0.035 %) drops 1 drp OPB BID Rx Instructions: 06/03/25 FOR 10 DAYS neomycin-polymyxin B-dexameth 3.5 mg/g-10,000 unit/g-0.1 % ointment 1 applic OPB DIRECTED Discharge Orders: Discharge Order (Routine); Ordered 06/13/25 Ordered By: Teto Ramey/Other Patient Handouts: Treating Constipation, Eating a High-Fiber Diet Admission Data Admit Date/Time: 06/11/25 22:24 Attending Provider: Antione Lorenzo Admit Provider: Shannon Juarez Primary Care Provider: Oliver Dempsey Other Providers: Shannon Juarez Supervising Physician Co-Signing Physician Notes I personally examined the patient and verified all dunn points of history and ex am, discussed case, and agree with decision making with Dr Walker Many bowel movementsclear orange liquid now. She also notes, however, she is not sure if she moved all of the solid stool given that it was all liquidbrown at first and now clearing. Vitals noted, in general she is awake and alert pleasant no distress. Abdomen is soft mild distention particularly upper abdomen, with a mild degree of fullness. No guarding rebound or rigidity. KUB noted. diarrhea - overflow - showed CT images to pt - she expresses understanding. Bowel prep for colonoscopy seems to have improved thingsalthough it is not entirely clear if we have actually removed all of the fecesbut definitely made enough of a difference that she can take care of herself moving forward. Extensive discussions on this. Will be proactiveMiraLAX probably twice daily routinely, assuming most of the time if she has an uptick in diarrhea it is probably overflow constipation, but trying to teach her how to approach this with "educated trial and error"she expressed a good understanding. Safe/stable for home. Close and ongoing PCP follow-up. Also discussed gradual dose reduction for acid suppression, especially if she does not need it anymore or not need as much anymore if a lot of her GERD was related to the constipation. echo reassuring otherwise as above Resident Activity Tracking Resident Involvement: Resident Care Provided Care Provided: Adult Hospital Medicine
--- NOTE | 2025-06-13 18:54 | Billing Data ---
Date of Service June 13, 2025 Coding Level of Care Code 97039 INP/OBS DISCH >30 MIN
--- NOTE | 2025-06-14 09:23 | Electrocardiogram Report ---
Test Reason : Blood Pressure : */* mmHG Vent. Rate : 86 BPM Atrial Rate : 86 BPM P-R Int : 144 ms QRS Dur : 72 ms QT Int : 344 ms P-R-T Axes : 24 13 9 degrees QTcB Int : 411 ms Normal sinus rhythm Cannot rule out Anterior infarct , age undetermined Abnormal ECG When compared with ECG of 10-Jun-2025 23:35, Premature ventricular complexes are no longer Present Nonspecific T wave abnormality now evident in Anterior leads Confirmed by Moustapha Gomez ([id number]) on 06/14/2025 9:23:25 AM Referred By: REFERRED SELF Confirmed By: Moustapha Gomez
== END 2025-06-13 20:51 | disposition home or self-care (01) ==
LOC: ED 16:42 → 2N 16:42 → SUATTDRO 22:24 → 2N 23:44 → 3E 06-12 19:14